=== PATIENT | female | born 1935 | race Caucasian/White ===

== ENCOUNTER 2018-03-18 03:43 | Emergency (ER) | payer MEDICARE ==
[~2018-03-18 03:43] MED LIST: ALBU1AER INH; IPRA0.02 INH; NEBUKIT4; VASO10TA8 PO
[2018-03-18 03:47] VITALS: BP 152/91; PULSE 99; RESP 18; TEMP 98; O2SAT 97
[2018-03-18] MEDS ORDERED: ALUMINUM/MAGNESIUM/SIMETH 30 ML CUP PO ONE (05:00)
[2018-03-18] MEDS ORDERED: LIDOCAINE VISCOUS 2% SOLN 15 ML UDC PO ONE (05:00)
[2018-03-18] MEDS ORDERED: SIMETHICONE SUSP DROPS 40 MG/0.6 ML 30 ML BTL PO ONE (05:00)
--- NOTE | 2018-03-18 05:04 | PD ---
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 She is done that repeatedly for 2 days and now she said she felt it was making her stomach hurt and her food tasted weird she read the package that said get medical help for ingestion she comes to the ER worried that she is ingested toxin. She also says she is very stressed and her pressure will be elevated and she brought her enalapril with her that she takes only as needed when her pressure goes up. She has no swelling of her lips she has no stridor she has no signs of respiratory distress there is no wheeze and she seems to be very anxious over worried about petroleum jelly which the amount that she is put on her lips is minimal and would not be toxic to her. PFSH Past Medical History Asthma: Yes Blood Disorders: No Anxiety: Yes Depression: No Heart Rhythm Problems: No Cancer: Yes (SKIN CA ON NOSE) Cardiovascular Problems: Yes (SMALL AORTIC ANEURYSM) High Cholesterol: No Chemotherapy: No Chest Pain: No Congestive Heart Failure: No COPD: Yes Diminished Hearing: No Endocrine: No Gastrointestinal Disorders: No Genitourinary: No Hypertension: Yes Immune Disorder: No Musculoskeletal: Yes (BORN MISSING A SINGLE VERTIBRA) Neurologic: No Psychiatric: Yes Reproductive: No Respiratory: Yes (COPD) Radiation Therapy: No Sleep Apnea: No Menopausal: Yes Past Surgical History Tonsillectomy: Yes Other Surgery: Yes (TONSILECTOMY) Social History Alcohol Use: No Tobacco Use: No Substance Use: No Allergies-Medications (Allergen,Severity, Reaction): Coded Allergies: ciprofloxacin (Unverified Allergy, Intermediate, RASH, HIVES, 03/18/18) penicillin G (Unverified Allergy, Intermediate, RASH, HIVES, 03/18/18) Reported Meds & Prescriptions Reported Meds & Active Scripts Active Reported Duoneb (Ipratropium-Albuterol Neb) 0.5-2.5 Mg/3 Ml Neb 1 Nebule INH Q6HR NEB Proair Hfa 8.5 GM Inh (Albuterol Sulfate) 90 Mcg/Act Aer 1 Puff INH Q4H PRN 108 mcg/actuation Vasotec (Enalapril Maleate) 10 Mg Tab 10 Mg PO BID Review of Systems Except as stated in HPI: all other systems reviewed are Neg Gastrointestinal: Positive: Abdominal Pain Physical Exam Narrative GENERAL: Patient seems mildly anxious standing at the doorway awaiting the doctor SKIN: Warm and dry. She has scar where she had basal cell carcinoma removed from her nose and she has a slight swelling of her right lower lip where this scar is healing from the squamous cell that was removed stitches were out HEAD: Atraumatic. Normocephalic. EYES: Pupils equal and round. No scleral icterus. No injection or drainage. ENT: Nose has healing scar from recent basal cell removal . Mucous membranes pink and moist. Posterior pharynx there is no swelling to her uvula there is no swelling to her tongue her right lower lip is mildly swollen no signs of infection postoperative NECK: Trachea midline. No JVD. ..No stridor on auscultated at the neck, no submental swelling of the lymph nodes CARDIOVASCULAR: Regular rate and rhythm. RESPIRATORY: No accessory muscle use. Clear to auscultation. Breath sounds equal bilaterally. GASTROINTESTINAL: Abdomen soft, pulsating mass felt on abdo exam . POC US 5.5cm AAA seen measured by this MD MUSCULOSKELETAL: Extremities without clubbing, cyanosis, or edema. No obvious deformities. NEUROLOGICAL: Awake and alert. No obvious cranial nerve deficits. Motor grossly within normal limits. Five out of 5 muscle strength in the arms and legs. Normal speech. PSYCHIATRIC: patient seems slightly anxious; insight and judgment normal. Data Data Last Documented VS Vital Signs Date Time Temp Pulse Resp B/P (MAP) Pulse Ox O2 Delivery O2 Flow Rate FiO2 03/18/18 08:07 82 17 132/84 (100) 98 Orders Orders Simethicone Liq (Drops) (Simethicone Liq (03/18/18 05:00) Al-Mag Hy-Si 40-40-4 Mg/Ml Liq (Mag-Al P (03/18/18 05:00) Lidocaine 2% Viscous (Xylocaine 2% Visco (03/18/18 05:00) Complete Blood Count With Diff (03/18/18 05:31) Comprehensive Metabolic Panel (03/18/18 05:31) Lipase (03/18/18 05:31) Cta Thor Abd Aorta W Iv C W3d (03/18/18 ) Sodium Chlorid 0.9% 500 Ml Inj (Ns 500 M (03/18/18 06:15) Iohexol 350 Inj (Omnipaque 350 Inj) (03/18/18 06:39) Ed Discharge Order (03/18/18 07:24) Radiology Film Requests (03/18/18 ) Endovascular Cath (03/18/18 ) Labs Laboratory Tests Test 03/18/18 05:35 White Blood Count 10.8 TH/MM3 Red Blood Count 4.69 MIL/MM3 Hemoglobin 13.7 GM/DL Hematocrit 41.3 % Mean Corpuscular Volume 88.1 FL Mean Corpuscular Hemoglobin 29.3 PG Mean Corpuscular Hemoglobin Concent 33.2 % Red Cell Distribution Width 15.4 % Platelet Count 233 TH/MM3 Mean Platelet Volume 7.3 FL Neutrophils (%) (Auto) 64.7 % Lymphocytes (%) (Auto) 18.7 % Monocytes (%) (Auto) 15.6 % Eosinophils (%) (Auto) 0.6 % Basophils (%) (Auto) 0.4 % Neutrophils # (Auto) 7.0 TH/MM3 Lymphocytes # (Auto) 2.0 TH/MM3 Monocytes # (Auto) 1.7 TH/MM3 Eosinophils # (Auto) 0.1 TH/MM3 Basophils # (Auto) 0.0 TH/MM3 CBC Comment DIFF FINAL Differential Comment Blood Urea Nitrogen 14 MG/DL Creatinine 0.64 MG/DL Random Glucose 105 MG/DL Total Protein 6.7 GM/DL Albumin 3.5 GM/DL Calcium Level 9.0 MG/DL Alkaline Phosphatase 125 U/L Aspartate Amino Transf (AST/SGOT) 17 U/L Alanine Aminotransferase (ALT/SGPT) 15 U/L Total Bilirubin 0.4 MG/DL Sodium Level 140 MEQ/L Potassium Level 4.0 MEQ/L Chloride Level 105 MEQ/L Carbon Dioxide Level 28.8 MEQ/L Anion Gap 6 MEQ/L Estimat Glomerular Filtration Rate 89 ML/MIN Lipase 161 U/L MDM Medical Decision Making Medical Screen Exam Complete: Yes Emergency Medical Condition: Yes Differential Diagnosis Differential diagnosis is anxiety versus somatization versus allergic reaction versus contact dermatitis versus other Narrative Course Maalox lidocaine and simethicone ordered , then on exam I feel a pulsatile mass > THis MD did POC US AAA 5.5cm measured and I order labs and aortic study of thoracic and abdo aorta. I did a CTA which shows the aneurysm is 6.8 I explained to the patient this is significantly enlarged and the durán very thin and the risk of rupturing and dying are very high and I insist that she stays and be seen by vascular surgery I explained to her the risk of passing away from a sudden tearing of the aneurysm she understands the risks and she understands that includes exsanguination and . I am giving her the CD and giving her a copy of the report and she will follow-up with her doctor today and discuss it with her children I am giving her the print report as well and I have explained in detail the severity of her situation I tell her that I want to admit her vascular surgery for elective surgery and I tell her the risk of a spontaneous rupture Procedures Procedure Narrative POC ABDO US --> AAA 5.5cm measured by this MD and large thrombus seen ,,--> CT ordered Diagnosis Primary Impression: Abdominal cramping Additional Impression: AAA (abdominal aortic aneurysm) without rupture Patient Instructions: General Instructions, Nonruptured Abdominal Aortic Aneurysm (DC), Nonruptured Abdominal Aortic Aneurysm (GEN) Disposition: 07 AGAINST MEDICAL ADVICE Goyo Arrieta MD Mar 18, 2018 05:04
[2018-03-18 05:44] LABS: BASOPHIL % 0.4 % (0.0-2.0); EOSINOPHIL # 0.1 TH/MM3 (0-0.4); EOSINOPHIL % 0.6 % (0.0-4.0); HEMATOCRIT 41.3 % (35.0-46.0); HEMOGLOBIN 13.7 GM/DL (11.6-15.3); LYMPH % 18.7 % (9.0-44.0); MEAN CELL VOLUME 88.1 FL (80.0-100.0); MEAN CORPUSCULAR HEMOGLOBIN 29.3 PG (27.0-34.0); MEAN CORPUSCULAR HGB CONC 33.2 % (32.0-36.0); MEAN PLATELET VOLUME 7.3 FL (7.0-11.0); MONO % 15.6 % (0.0-8.0); MONOCYTE # 1.7 TH/MM3 (0-0.9); NEUT % 64.7 % (16.0-70.0); PLATELET COUNT 233 TH/MM3 (150-450); RED BLOOD COUNT 4.69 MIL/MM3 (4.00-5.30); RED CELL DISTRIBUTION WIDTH 15.4 % (11.6-17.2); WHITE BLOOD COUNT 10.8 TH/MM3 (4.0-11.0)
[2018-03-18 06:08] LABS: ALBUMIN 3.5 GM/DL (3.4-5.0); ALT (GPT) 15 U/L (10-53); AST (GOT) 17 U/L (15-37); BICARBONATE 28.8 MEQ/L (21.0-32.0); BLOOD UREA NITROGEN 14 MG/DL (7-18); CHLORIDE 105 MEQ/L (98-107); CREATININE 0.64 MG/DL (0.50-1.00); GLOMERULAR FILTRATION RATE 89 ML/MIN (>89); GLUCOSE,RANDOM 105 MG/DL (74-106); SODIUM (NA) 140 MEQ/L (136-145)
[2018-03-18 06:10] LABS: ALKALINE PHOSPHATASE 125 U/L (45-117); TOTAL BILIRUBIN ADULT 0.4 MG/DL (0.2-1.0); TOTAL PROTEIN 6.7 GM/DL (6.4-8.2)
[2018-03-18] MEDS ORDERED: SODIUM CHLORID 0.9% 500 ML INJ 500 ML IV ONE (06:15)
[2018-03-18] MEDS ORDERED: IOHEXOL 350 MG/ML 10 ML VIAL (for RAD DIAG) IVCONTRAST ONE (06:39)
--- NOTE | 2018-03-18 06:56 | RADRPT ---
EXAM DATE/TIME: 03/18/2018 06:20 [place] COMPARISON: No previous studies available for comparison. INDICATIONS : Abdominal pain, doctor seen 5.5 cm aneurysm on bedside US. IV CONTRAST: 80 cc Omnipaque 350 (iohexol) IV RADIATION DOSE: 3.92 CTDIvol (mGy) MEDICAL HISTORY : Hypertension. Chronic obstructive pulmonary disease. Aneurysm, abdominal. SURGICAL HISTORY : None. ENCOUNTER: Initial ACUITY: 1 day PAIN SCALE: 7/10 LOCATION: Abdomen. TECHNIQUE: Volumetric scanning was performed using a multi-row detector CT scanner. The data was post processed with a variety of visualization algorithms including full volume maximum intensity pr ojection, multi-planar sliding thin slab reformation, curved planar reformation, and surface renderin g techniques. Using automated exposure control and adjustment of the mA and/or kV according to patie nt size, radiation dose was kept as low as reasonably achievable to obtain optimal diagnostic quality images. DICOM format image data is available electronically for review and comparison. FINDINGS: LUNGS: There is no consolidation or pneumothorax. No concerning pulmonary nodule is visualized. No pleural fluid is present. MEDIASTINUM: No abnormally enlarged lymph nodes by CT criteria. No axillary or hilar abnormalitie s are identified. ABDOMEN: The liver and spleen are free of focal defects. The gallbladder and pancreas demonstrate no abnormality. The adrenal glands are normal. The kidneys demonstrate no evidence of solid renal ma ss or hydronephrosis. Benign left renal cyst. No free fluid or abdominal masses are identified. No pa ra-aortic adenopathy is seen. PELVIS: No evidence of free fluid or pelvic mass. No abnormally enlarged inguinal or retroperiton eal lymph nodes are present. The bladder is unremarkable. THORACIC AORTA: The thoracic aortic root is normal with normal branching of the great vessels. There is no evidence of aneurysm or dissection. ABDOMINAL AORTA: There is a large aneurysm of the abdominal aorta beginning approximately 2 cm in ferior to the level of the renal arteries and extending to the level of the common iliac artery bifur cation. The aneurysm demonstrates a large area of asymmetric thrombus with the aneurysm measuring 6.8 cm anterior posterior by 5.8 cm transversely. There are small foci of increased density identified w ithin the area of lower attenuation thrombus consistent with active bleeding. PELVIC VESSELS: The internal iliac and external iliac vessels are patent without aneurysm or sten osis. CONCLUSION: There is a large abdominal aortic aneurysm extending from approximately 2 cm below le candido of the renal arteries to the level of the common iliac artery bifurcation. The maximum diameter o f the aneurysm measures 6.8 cm. There is evidence of active bleeding within the aneurysm. Debbi Lima MD on March 18, 2018 at 6:46 Board Certified Radiologist. This report was verified electronically.
[2018-03-18 08:07] VITALS: BP 132/84
[2018-03-18] MEDS ORDERED: VASO10TA8 PO (11:55)
[2018-03-18] MEDS ORDERED: ALBUAER3 INH (11:55)
[2018-03-18] MEDS ORDERED: IPRASOL INH (11:55)
== END 2018-03-18 08:10 | disposition left against medical advice (07) ==
LOC: NEPE 03:43
DX: I71.4 Abdominal aortic aneurysm, without rupture (principal); R10.9 Unspecified abdominal pain; Z53.20 Procedure and treatment not carried out because of patient's decision for unspecified reasons; I10 Essential (primary) hypertension; J44.9 Chronic obstructive pulmonary disease, unspecified; Z85.828 Personal history of other malignant neoplasm of skin; Z88.0 Allergy status to penicillin; Z79.899 Other long term (current) drug therapy
CPT/HCPCS: 71275; 74174; 80053; 83690; 85025; 96360; 99284; J7040; Q9967

== ENCOUNTER 2018-03-18 10:10 | Inpatient (IN) | payer MEDICARE ==
[2018-03-18] VITALS (13 sets, daily range): BP systolic 105–149; BP diastolic 45–79; PULSE 65–103; RESP 15–20; TEMP 96.7–98.2; O2SAT 96–99
--- NOTE | 2018-03-18 11:15 | PD ---
HPI . GI upset Chief Complaint: GI Complaint Time Seen by Provider: 10:31 Travel History International Travel<30 days: No Contact w/Intl Traveler<30days: No Traveled to known affect area: No History of Present Illness HPI This patient was called back by her primary care physician for further evaluation and treatment of a leaking AAA. The patient states that she is having an adverse reaction to doxycycline. She was placed on doxycycline because of some facial wounds. She reports epigastric discomfort and flatus. She was seen for this last night. She was found to have the AAA and this was recommended. However, she signed out AMA. Her primary care physician received the radiology report today. He was able to contact the patient and her son. The son brought her back to us this morning. She continues to report that her problem is the adverse reaction to doxycycline. She has stopped the doxycycline but the symptoms persist. She rates the severity at 5/10. There have been no modifying factors. PFSH Past Medical History Asthma: Yes Blood Disorders: No Anxiety: Yes Depression: No Heart Rhythm Problems: No Cancer: Yes (SKIN CA ON NOSE) Cardiovascular Problems: Yes (SMALL AORTIC ANEURYSM) High Cholesterol: No Chemotherapy: No Chest Pain: No Congestive Heart Failure: No COPD: Yes Diminished Hearing: No Endocrine: No Gastrointestinal Disorders: No Genitourinary: No Hypertension: Yes Immune Disorder: No Musculoskeletal: Yes (BORN MISSING A SINGLE VERTIBRA) Neurologic: No Psychiatric: Yes Reproductive: No Respiratory: Yes (COPD) Radiation Therapy: No Sleep Apnea: No Menopausal: Yes Past Surgical History Tonsillectomy: Yes Other Surgery: Yes (TONSILECTOMY) Social History Alcohol Use: No Tobacco Use: No Substance Use: No Allergies-Medications (Allergen,Severity, Reaction): Coded Allergies: ciprofloxacin (Unverified Allergy, Intermediate, RASH, HIVES, 03/18/18) penicillin G (Unverified Allergy, Intermediate, RASH, HIVES, 03/18/18) Reported Meds & Prescriptions Reported Meds & Active Scripts Active Reported Duoneb (Ipratropium-Albuterol Neb) 0.5-2.5 Mg/3 Ml Neb 1 Nebule INH Q6HR NEB Proair Hfa 8.5 GM Inh (Albuterol Sulfate) 90 Mcg/Act Aer 1 Puff INH Q4H PRN 108 mcg/actuation Vasotec (Enalapril Maleate) 10 Mg Tab 10 Mg PO BID Review of Systems Except as stated in HPI: all other systems reviewed are Neg Neurologic: No: Weakness, Dizziness, Paresthesia, Sensory Disturbance Physical Exam Narrative GENERAL: Lucid. Awake and alert. SKIN: warm/dry. HEAD: Normocephalic. Atraumatic. EYES: Pupils equal and round. No scleral icterus. No injection or drainage. ENT: No nasal bleeding or discharge. Mucous membranes pink and moist. NECK: Trachea midline. Full range of motion without pain.. CARDIOVASCULAR: Regular rate and rhythm. Heart sounds are normal. RESPIRATORY: No accessory muscle use. Clear to auscultation. Breath sounds equal bilaterally. GASTROINTESTINAL: Abdomen soft. Nontender. Bowel sounds present. Nondistended. MUSCULOSKELETAL: No obvious deformities. NEUROLOGICAL: Awake and alert. No obvious cranial nerve deficits. Motor grossly within normal limits. Normal speech. PSYCHIATRIC: Appropriate mood and affect; insight and judgment normal. Data Data Last Documented VS Vital Signs Date Time Temp Pulse Resp B/P (MAP) Pulse Ox O2 Delivery O2 Flow Rate FiO2 03/18/18 12:14 88 18 149/68 (95) 95 03/18/18 10:19 98.1 Orders Orders ^ Saline Lock (03/18/18 10:36) Complete Blood Count With Diff (03/18/18 10:36) Prothrombin Time / Inr (Pt) (03/18/18 10:36) Urinalysis - C+S If Indicated (03/18/18 10:36) Act Partial Throm Time (Ptt) (03/18/18 10:36) Electrocardiogram (03/18/18 ) Type And Screen (03/18/18 11:48) Fentanyl Inj (Fentanyl Inj) (03/18/18 11:50) Red Blood Cells (Rbc) (03/18/18 12:03) Vancomycin Inj (Vancomycin Inj) (03/18/18 12:08) Protamine Sulfate Inj (Protamine Sulfate (03/18/18 12:11) Heparin Inj (Heparin Inj) (03/18/18 12:12) Labs Laboratory Tests Test 03/18/18 11:20 03/18/18 11:59 White Blood Count 9.8 TH/MM3 Red Blood Count 4.42 MIL/MM3 Hemoglobin 12.9 GM/DL Hematocrit 38.3 % Mean Corpuscular Volume 86.8 FL Mean Corpuscular Hemoglobin 29.1 PG Mean Corpuscular Hemoglobin Concent 33.6 % Red Cell Distribution Width 14.8 % Platelet Count 235 TH/MM3 Mean Platelet Volume 7.5 FL Neutrophils (%) (Auto) 65.7 % Lymphocytes (%) (Auto) 19.2 % Monocytes (%) (Auto) 14.3 % Eosinophils (%) (Auto) 0.3 % Basophils (%) (Auto) 0.5 % Neutrophils # (Auto) 6.4 TH/MM3 Lymphocytes # (Auto) 1.9 TH/MM3 Monocytes # (Auto) 1.4 TH/MM3 Eosinophils # (Auto) 0.0 TH/MM3 Basophils # (Auto) 0.0 TH/MM3 CBC Comment DIFF FINAL Differential Comment Prothrombin Time 10.8 SEC Prothromb Time International Ratio 1.1 RATIO Activated Partial Thromboplast Time 28.0 SEC Urine Color LIGHT-YELLOW Urine Turbidity CLEAR Urine pH 7.5 Urine Specific [place] 1.026 Urine Protein NEG mg/dL Urine Glucose (UA) NEG mg/dL Urine Ketones NEG mg/dL Urine Occult Blood MOD Urine Nitrite NEG Urine Bilirubin NEG Urine Urobilinogen LESS THAN 2.0 MG/DL Urine Leukocyte Esterase NEG Urine RBC 6 /hpf Urine WBC 2 /hpf Urine Bacteria OCC /hpf Microscopic Urinalysis Comment CULT NOT INDICATED MDM Medical Decision Making Medical Screen Exam Complete: Yes Emergency Medical Condition: Yes Medical Record Reviewed: Yes (CTA done at 620 this morning shows a large AAA which starts 2 cm below the renal arteries and extends to the bifurcation. Maximum diameter is 6.8 cm. There is evidence of active bleeding.) Interpretation(s) EKG shows a normal sinus rhythm with no acute ischemic changes Differential Diagnosis Differential diagnosis of abdominal pain includes but is not limited to gastritis, pancreatitis, hepatitis, gastroenteritis, constipation, urinary retention, peptic ulcer disease, diverticulitis or appendicitis Narrative Course This patient presents at the request of her physician because of a CTA done earlier this morning which shows a leaking AAA. She has no complaints of feeling weak or dizzy. She has no neurologic complaints in the lower extremities. An IV was started. I did not recheck her chemistries which were done early this morning. I have rechecked her CBC. I have added a PT and PTT as well as UA and EKG for preoperative purposes. Vascular surgery was consulted and will see the patient shortly. Dr. Figueroa is taking this patient emergently to the operating room. Critical Care Narrative Aggregate critical care time was 30 minutes. Time to perform other separately billable procedures was not included in the critical care time. My time did not include minutes spent treating any other patients simultaneously or on activities that did not directly contribute to the patient's treatment. The services I provided to this patient were to treat and/or prevent clinically significant deterioration due to leaking AAA I provided critical care services requiring my management, as noted below: Chart data review, documentation time, medication orders and management, vital sign assessments/reviewing monitor data, ordering and reviewing lab tests, ordering and interpreting/reviewing x-rays and diagnostic studies, care of the patient and discussion of the patient with the admitting physicians Physician Communication Physician Communication Dr. Carlos will see the patient shortly. Diagnosis Primary Impression: AAA (abdominal aortic aneurysm) Qualified Codes: I71.4 - Abdominal aortic aneurysm, without rupture Admitting Information Admitting Physician Requests: Admit Condition: Stable Karena Crowell MD Mar 18, 2018 11:15
[2018-03-18 11:49] LABS: INTERNATIONAL NORMALIZED RATIO 1.1 RATIO; PROTHROMBIN TIME - PATIENT 10.8 SEC (9.8-11.6)
[2018-03-18] MEDS ORDERED: IPRASOL INH (11:55)
[2018-03-18] MEDS ORDERED: ALBUAER3 INH (11:55)
[2018-03-18] MEDS ORDERED: VASO10TA8 PO (11:55)
[2018-03-18] MEDS ORDERED: NEOSTIGMINE 5 MG/5 ML SYRINGE IV PUSH ONE ×2 (12:00)
[2018-03-18] MEDS ORDERED: DEXAMETHASONE SOD PHOS 4 MG/ML VIAL IV ONE ×2 (12:00)
[2018-03-18] MEDS ORDERED: ONDANSETRON HCL 4 MG/2 ML VIAL IV ONE ×2 (12:00)
[2018-03-18] MEDS ORDERED: LIDOCAINE HCL 1% PF 5 ML SYRINGE OTHER ONE ×2 (12:00)
[2018-03-18] MEDS ORDERED: ePHEDrine/NS 25 MG/5 ML SYRINGE IV ONE ×2 (12:00)
[2018-03-18] MEDS ORDERED: LABETALOL HCL 100 MG/20 ML VIAL IV ONE ×2 (12:00)
[2018-03-18] MEDS ORDERED: ROCURONIUM INJ 50 MG/5 ML SYRINGE IV PUSH ONE ×2 (12:00)
[2018-03-18] MEDS ORDERED: PROPOFOL 200 MG/20 ML AMP IV ONE ×2 (12:00)
[2018-03-18] MEDS ORDERED: GLYCOPYRROLATE 1 MG/5 ML SYRINGE IV PUSH ONE ×2 (12:00)
[2018-03-18] MEDS ORDERED: ESMOLOL HCL 100 MG/10 ML VIAL IV ONE ×2 (12:00)
[2018-03-18] MEDS ORDERED: STERILE WATER FOR INJECTION 20 ML VIAL IV ONE ×2 (12:00)
[2018-03-18] MEDS ORDERED: PHENYLEPH/NS 1000 MCG/10 ML SYR IV ONE ×2 (12:00)
--- NOTE | 2018-03-18 12:05 | HHI.HP ---
History of Present Illness Chief Complaint: New onset abdominal pain History of Present Illness 82/F with a PMH of COPD/ HTN/ Skin Cancer Pt denied MT/ cardiac hx Pt Arrived to the ED c/o "gas pains" lower pelvic pain times a few days that worsened over night Imaging studies obtained and it was discovered that the pt has a leaking infrarenal AAA (6.8 cm) Pt reported a known hx a few years ago but was told it was small, no f/u and pt does not recall the size (Ladan Hernandez) Past/Family/Social History Past Medical History HTN COPD Skin cancer Past Surgical History denied Social History Live alone Family lives locally that checks on her daily Had 2 sons and 1 daughter Denied ETOH Smoking hx quit years ago Denied Illicit drug usage Family History No hx of aneurysms (Ladan Hernandez) Home Medications Reported Medications Ipratropium-Albuterol Neb (Duoneb) 0.5-2.5 Mg/3 Ml Neb, 1 NEBULE INH Q6HR NEB for Breathing Treatment, #120 NEBULE 0 Refills 03/18/18 Albuterol 8.5 GM Inh (Proair Hfa 8.5 GM Inh) 90 Mcg/Act Aer, 1 PUFF INH Q4H Y for SHORTNESS OF BREATH, #1 INHALER 0 Refills 108 mcg/actuation 03/18/18 Enalapril (Vasotec) 10 Mg Tab, 10 MG PO BID, #60 TAB 0 Refills 03/18/18 Discontinued Reported Medications Albuterol Sulfate (Proair Hfa) 8.5 Gm Aero, 1 PUFF INH Q6HPRN, #1 * SHAKE WELL BEFORE USE * 09/28/09 Discontinued Scripts Enalapril Maleate (Vasotec) 10 Mg Tab, 10 MG PO BID for htn for 30 Days, TAB Prov:Nenita Santillan 02/05/15 Ipratropium Brickeys (Atrovent Ud 0.02% (0.5 Mg/2.5 Ml)) 0.5 Mg/2.5 Ml Nebu, 0.5 MG INH QID for copd exacerbation, #1 BOX Prov:Nenita Santillan 02/05/15 Respiratory Therapy Supplies (Nebulizer/Adult Mask) Kit, 1 UNIT, #1 Prov:Nenita Santillan 02/05/15 Coded Allergies: ciprofloxacin (Unverified Allergy, Intermediate, RASH, HIVES, 03/18/18) penicillin G (Unverified Allergy, Intermediate, RASH, HIVES, 03/18/18) Review of Systems Constitutional: DENIES: Fever, Chills Respiratory: DENIES: Cough, Shortness of breath Cardiovascular: DENIES: Chest pain Gastrointestinal: COMPLAINS OF: Abdominal pain (lower Right quadrant ) (Ladan Hernandez) Physical Exam Vitals/I&O Date Time Temp Pulse Resp B/P (MAP) Pulse Ox O2 Delivery O2 Flow Rate FiO2 03/18/18 11:22 86 18 132/71 (91) 98 03/18/18 10:19 98.1 91 20 129/79 (96) 98 Neuro: A&OX3 GCS 15 Neck: No JVD distention No carotid bruits Heart: RRR +S1,S2 Lungs: CTA Abdomen: S/NT RLQ discomfort Vascular: palpable pedal pulses palpable radial pulses Extremities: UE 5/5 LE 5/5 (Ladan Hernandez) Laboratory Tests Test 03/18/18 11:20 Prothrombin Time 10.8 Prothromb Time International Ratio 1.1 Activated Partial Thromboplast Time 28.0 (Ladan Hernandez) Caprini VTE Risk Assessment VTE Pharm Contraindication: Active bleeding Caprini Risk Assessment Model Point Value = 1 Point Value = 2 Point Value = 3 Point Value = 5 Age 41-60 Minor surgery BMI > 25 kg/m2 Swollen legs Varicose veins or History of unexplained or recurrent spontaneous Oral contraceptives or hormone replacement Sepsis (< 1 month) Serious lung disease, including pneumonia (< 1 month) Abnormal pulmonary function Acute myocardial infarction Congestive heart failure (< 1 month) History of inflammatory bowel disease Medical patient at bed rest Age 61-74 Arthroscopic surgery Major open surgery (> 45 min) Laparoscopic surgery (> 45 min) Malignancy Confined to bed (> 72 hours) Immobilizing plaster cast Central venous access Age >= 75 History of VTE Family history of VTE Factor V Leiden Prothrombin [id number] Lupus anticoagulant Anticardiolipin antibodies Elevated serum homocysteine Heparin-induced thrombocytopenia Other congenital or acquired thrombophilia Stroke (< 1 month) Elective arthroplasty Hip, pelvis, or leg fracture Acute spinal cord injury (< 1 month) Prophylaxis Regimen Total Risk Factor Score Risk Level Prophylaxis Regimen 0-1 Low Early ambulation 2 Moderate Order ONE of the following: *Sequential Compression Device (SCD) *Heparin 5000 units SQ BID 3-4 Higher Order ONE of the following medications: *Heparin 5000 units SQ TID *Enoxaparin/Lovenox 40 mg SQ daily (WT < 150 kg, CrCl > 30 mL/min) *Enoxaparin/Lovenox 30 mg SQ daily (WT < 150 kg, CrCl > 10-29 mL/min) *Enoxaparin/Lovenox 30 mg SQ BID (WT < 150 kg, CrCl > 30 mL/min) AND/OR *Sequential Compression Device (SCD) 5 or more Highest Order ONE of the following medications: *Heparin 5000 units SQ TID (Preferred with Epidurals) *Enoxaparin/Lovenox 40 mg SQ daily (WT < 150 kg, CrCl > 30 mL/min) *Enoxaparin/Lovenox 30 mg SQ daily (WT < 150 kg, CrCl > 10-29 mL/min) *Enoxaparin/Lovenox 30 mg SQ BID (WT < 150 kg, CrCl > 30 mL/min) AND *Sequential Compression Device (SCD) (Ladan Hernandez) Caprini VTE Risk Assessment: Mod/High Risk (score >= 2) (Ricardo Carlos MD) Assessment and Plan Assessment: (1) AAA (abdominal aortic aneurysm) Status: Acute Plan 82/F with a 6.7 cm ruptured infrarenal AAA Pt c/o increased abdominal pain over the past few days Plan Discussed CT results w/ pt and son and the emergent need to repair Questions answered Consents obtained T&C 2U Pt sent to the OR for AAA repair Ladan Hernandez NP [facility] [phone] (Ladan Hernandez) Plan Appears to have contained rupture of AAA. To OR for EVAR. CVICU post-op. Discussed risks and benefits with patient/family. To OR. Ricardo Carlos MD FACS [facility] packing inspector [facility] - Heart [facility] Vascular Surgery at [facility] [phone] (Ricardo Carlos MD) Problem Qualifiers (1) AAA (abdominal aortic aneurysm): Qualified Codes: I71.3 - Abdominal aortic aneurysm, ruptured Ladan Hernandez Mar 18, 2018 12:05 Ricardo Carlos MD Mar 18, 2018 12:11
[2018-03-18] MEDS ORDERED: VANCOMYCIN HCL 1000 MG VIAL ONE (12:08)
[2018-03-18] MEDS ORDERED: PROTAMINE SULFATE 50 MG/5 ML VIAL ONE (12:11)
[2018-03-18 12:12] LABS: AUTOMATED NEUTROPHIL # 6.4 TH/MM3 (1.8-7.7); BASOPHIL % 0.5 % (0.0-2.0); EOSINOPHIL % 0.3 % (0.0-4.0); HEMATOCRIT 38.3 % (35.0-46.0); HEMOGLOBIN 12.9 GM/DL (11.6-15.3); LYMPH % 19.2 % (9.0-44.0); LYMPHOCYTE # 1.9 TH/MM3 (1.0-4.8); MEAN CELL VOLUME 86.8 FL (80.0-100.0); MEAN CORPUSCULAR HEMOGLOBIN 29.1 PG (27.0-34.0); MEAN CORPUSCULAR HGB CONC 33.6 % (32.0-36.0); MEAN PLATELET VOLUME 7.5 FL (7.0-11.0); MONO % 14.3 % (0.0-8.0); MONOCYTE # 1.4 TH/MM3 (0-0.9); NEUT % 65.7 % (16.0-70.0); PLATELET COUNT 235 TH/MM3 (150-450); RED BLOOD COUNT 4.42 MIL/MM3 (4.00-5.30); RED CELL DISTRIBUTION WIDTH 14.8 % (11.6-17.2); WHITE BLOOD COUNT 9.8 TH/MM3 (4.0-11.0)
[2018-03-18] MEDS ORDERED: HEPARIN SODIUM - IV 10,000 UNITS/10 ML VIAL ONE (12:12)
[2018-03-18 12:16] LABS: BACTERIA, URINE OCC /hpf; BILIRUBIN, URINE NEG (NEG); BLOOD, URINE MOD (NEG); GLUCOSE,URINE NEG (NEG); KETONE, URINE NEG (NEG); NITRITE,URINE NEG (NEG); PH, URINE 7.5 (5.0-8.5); URINE COLOR LIGHT-YELLOW (YELLW/STRAW); URINE LEUKOCYTE ESTERASE NEG (NEG)
[2018-03-18] MEDS ORDERED: HEPARIN-NS/PF INJ 500 ML ONE (13:28)
[2018-03-18] MEDS ORDERED: BUPIVACAINE HCL PF 0.5% 30 ML VIAL ONE (13:32)
--- NOTE | 2018-03-18 14:06 | HHI.PR ---
cc: Ricardo Carlos MD Immediate Post Op Note Procedure Date: Mar 18, 2018 Pre Op Diagnosis: Ruptured AAA Post Op Diagnosis: Ruptured AAA Surgeon: Ricardo Carlos Parts Room Clerk(s): Ricardo Snyder Procedure: EVAR with two docking limbs B COMMERCIAL PHOTOGRAPHER Perclose Findings: successful EVAR good Doppler signals after EVAR Additional Information: 80mL IV contrast 17 minutes fluoroscopy Complications: none Specimen(s) removed: none Estimated blood loss: 100mL Anesthesia: General Drains: None Fluids: 2000mL IVF Urinary Output (mLs): 500 Patient to: PACU Patient Condition: Good Implant/Devices: SEE IMPLANT LOG (if applicable) Date/Time of Procedure: SEE SURGICAL CARE RECORD Ricardo Carlos MD Mar 18, 2018 14:06
[2018-03-18] MEDS ORDERED: LACTATED RINGER'S 1000 ML INJ 1,000 ML IV SCH (14:07)
[2018-03-18] MEDS ORDERED: LACTULOSE SYRUP 20 GM/30 ML CUP PO PRN (14:15)
[2018-03-18] MEDS ORDERED: ALBUTEROL SULFATE 90 MCG/ACT HFA 8 GM INHALER INH PRN (14:15)
[2018-03-18] MEDS ORDERED: MAGNESIUM HYDROXIDE SUSP 30 ML CUP PO PRN (14:15)
[2018-03-18] MEDS ORDERED: HYDROmorphone HCL 2 MG TAB PO PRN (14:15)
[2018-03-18] MEDS ORDERED: BISACODYL 10 MG SUPP RECTAL PRN (14:15)
[2018-03-18] MEDS ORDERED: SENNOSIDES 8.6 MG TAB PO PRN (14:15)
[2018-03-18] MEDS ORDERED: IOHEXOL 350 MG/ML 50 ML BTL (for RAD DIAG) IVCONTRAST ONE (14:18)
--- NOTE | 2018-03-18 14:31 | PD.CONS ---
[facility] Service Critical Care Medicine Consult Requested By Dr. Carlos Reason for Consult Leaking abdominal aortic aneurysm s/p successful EVAR History of COPD Primary Care Physician Inder Meeks M.D. History of Present Illness Patient is a 10-year-old female with past medical history significant for COPD, hypertension, skin cancer and history of small abdominal aortic aneurysm. She presented to the emergency department with lower abdominal pain was overnight. An aortic angiogram showed that the patient had a leaking infrarenal AAA, 6.8 cm in maximum diameter. Vascular surgery Dr. Carlos was consulted and he emergently took the patient to OR. Underwent successful EVAR. Estimated blood loss: 100mL, received 2 L of IV fluids, urine output 500 mL I evaluated the patient in the CVICU. Patient is awake alert and slightly under the influence of anesthesia. Hemodynamically stable. Peripheral lower extremity pulses are palpable. Urine output adequate. CBC pending Review of Systems ROS Limitations: Other (as per HPI) Past Family Social History Allergies: Coded Allergies: ciprofloxacin (Unverified Allergy, Intermediate, RASH, HIVES, 03/18/18) penicillin G (Unverified Allergy, Intermediate, RASH, HIVES, 03/18/18) Past Medical History HTN COPD Skin cancer Known history of AAA Past Surgical History Tonsillectomy Reported Medications DuoNeb breathing treatments Enalapril (Vasotec) 10 Mg Tab, 10 MG PO BID Active Ordered Medications Reviewed Family History Denies any history of ruptured aneurysms Social History Quit smoking 1 year ago Physical Exam Vital Signs Vital Signs Date Time Temp Pulse Resp B/P (MAP) Pulse Ox O2 Delivery O2 Flow Rate FiO2 03/18/18 12:14 88 18 149/68 (95) 95 03/18/18 12:03 65 18 149/68 (95) 99 Nasal Cannula 2.00 03/18/18 11:22 86 18 132/71 (91) 98 03/18/18 10:19 98.1 91 20 129/79 (96) 98 Physical Exam GENERAL: Awake and alert. No distress SKIN: warm/dry. HEAD: Normocephalic. Atraumatic. EYES: Pupils equal and round. No scleral icterus. ENT: No nasal bleeding or discharge. Airway patent NECK: Trachea midline. CARDIOVASCULAR: Regular rate and rhythm. S1-S2 normal no murmurs RESPIRATORY: Clear to auscultation. Breath sounds equal bilaterally. GASTROINTESTINAL: Abdomen soft. Nontender. Nondistended. MUSCULOSKELETAL: No obvious deformities. Bilateral groins incisions C/D/I. Bilateral lower extremity peripheral pulses are palpable NEUROLOGICAL: Awake and alert. No obvious cranial nerve deficits. Motor grossly within normal limits. Laboratory Laboratory Tests Test 03/18/18 11:20 03/18/18 11:59 White Blood Count 9.8 Red Blood Count 4.42 Hemoglobin 12.9 Hematocrit 38.3 Mean Corpuscular Volume 86.8 Mean Corpuscular Hemoglobin 29.1 Mean Corpuscular Hemoglobin Concent 33.6 Red Cell Distribution Width 14.8 Platelet Count 235 Mean Platelet Volume 7.5 Neutrophils (%) (Auto) 65.7 Lymphocytes (%) (Auto) 19.2 Monocytes (%) (Auto) 14.3 Eosinophils (%) (Auto) 0.3 Basophils (%) (Auto) 0.5 Neutrophils # (Auto) 6.4 Lymphocytes # (Auto) 1.9 Monocytes # (Auto) 1.4 Eosinophils # (Auto) 0.0 Basophils # (Auto) 0.0 CBC Comment DIFF FINAL Differential Comment Prothrombin Time 10.8 Prothromb Time International Ratio 1.1 Activated Partial Thromboplast Time 28.0 Urine Color LIGHT-YELLOW Urine Turbidity CLEAR Urine pH 7.5 Urine Specific [place] 1.026 Urine Protein NEG Urine Glucose (UA) NEG Urine Ketones NEG Urine Occult Blood MOD Urine Nitrite NEG Urine Bilirubin NEG Urine Urobilinogen LESS THAN 2.0 Urine Leukocyte Esterase NEG Urine RBC 6 Urine WBC 2 Urine Bacteria OCC Microscopic Urinalysis Comment CULT NOT INDICATED Result Diagram: 03/18/18 1120 Imaging Aortic angiogram personally reviewed Septic Shock Reassessment Septic shock perfusion: reassessment completed Assessment and Plan Assessment and Plan ASSESSMENT: Leaking abdominal aortic aneurysm 6.8 cm in maximum diameter s/p successful EVAR History of COPD Hypertension PLAN: NEURO: As needed Dilaudid for pain. Otherwise minimize sedation RESP: Nasal cannula oxygen. DuoNeb every 6 hours scheduled, every 2 hours as needed. EzPAP CV: LR at 42 ml per hour. 2D Echo ordered by Dr. Carlos GI: Diet per vascular surgery : Monitor renal function closely. Yip catheter. Maintain urine output more than 0.5 mL/kg/h ID: Perioperative antibiotics per vascular surgery HEME: Monitor CBC, CMP, coags as needed ENDO: Electrolyte replacement per CVICU protocol PROPH: Lovenox for DVT prophylaxis per Dr. Carlos LINES: Utilize peripheral IVs, central line if needed Level 3 new consult Code Status Full Discussed Condition With Dr. Carlos, bedside RN Naomi, Patient's family Audrey Jensen MD Mar 18, 2018 14:31
[2018-03-18] MEDS: ENOXAPARIN SODIUM 30 MG/0.3 ML SYRINGE SQ SCH (15:37)
[2018-03-18] MEDS ORDERED: RESP: ALBUTEROL 2.5 MG/IPRATROPIUM 0.5 MG NEB (SCH) INH (16:00)
[2018-03-18 16:05] LABS: HEMATOCRIT 33.8 % (35.0-46.0); HEMOGLOBIN 11.7 GM/DL (11.6-15.3); MEAN CELL VOLUME 85.7 FL (80.0-100.0); MEAN CORPUSCULAR HEMOGLOBIN 29.7 PG (27.0-34.0); MEAN CORPUSCULAR HGB CONC 34.7 % (32.0-36.0); MEAN PLATELET VOLUME 6.8 FL (7.0-11.0); PLATELET COUNT 186 TH/MM3 (150-450); RED BLOOD COUNT 3.94 MIL/MM3 (4.00-5.30); RED CELL DISTRIBUTION WIDTH 14.9 % (11.6-17.2); WHITE BLOOD COUNT 10.7 TH/MM3 (4.0-11.0)
--- NOTE | 2018-03-18 21:09 | MP ---
cc: Ricardo Carlos MD DATE OF OPERATION:03/18/18 PREOPERATIVE DIAGNOSIS: Ruptured abdominal aortic aneurysm. POSTOPERATIVE DIAGNOSIS: Ruptured abdominal aortic aneurysm. PROCEDURE: 1. Endovascular exclusion of abdominal aortic aneurysm using a bifurcated bi-iliac device. 2. Bilateral common femoral artery Perclose of an 18-Estonian sheath on the right and 16-Estonian sheath on the left. ATTENDING SURGEON: Ricardo Carlos MD PHYSICS TECHNICAL OFFICER SURGEON: Ricardo Snyder MD . ANESTHESIA: General. INDICATIONS FOR PROCEDURE: Ms. Huffman is a lady who came into the emergency department with abdominal pain and a CT scan showed radiographic evidence of an abdominal aortic aneurysm that ruptured. She was taken to the operating room emergently. DESCRIPTION OF PROCEDURE: Informed consent was obtained. She was taken to the operating room and was placed supine on the operating room table and appropriate timeout was taken to ensure the patient's identity, operative site, and planned procedure. The administration of 1 gram of vancomycin was initiated prior to skin incision and will be discontinued after a single preoperative dose. Vancomycin was chosen because of the patient's PENICILLIN ALLERGY. Everyone in the room agreed with timeout and we proceeded. She was prepped from her chin to her knees. A 21-gauge micropuncture needle was used to access both common femoral arteries. Access was obtained using Seldinger technique for micropuncture sheath through which a 0.035 Storq wire was advanced and the micropuncture sheath was exchanged for a 5-Estonian sheath to dilate the skin, subcutaneous trac and arteriotomy. Two Perclose ProGlide sutures were inserted in both common femoral arteries and tagged. These will be used later. The short 8-Estonian sheath was placed in the right and a long 8-Estonian sheath was placed in the left. The patient was systemically heparinized. Storq wire was advanced up to the proximal descending thoracic aorta and the right hand Storq wire exchanged for a Lunderquist wire and over the left hand Storq wire a marker flush straight catheter was placed. The 8-Estonian sheath on the right was removed. Fred dilators were used to dilate the skin and subcutaneous tract and arteriotomy to 18F and the main device, which was a Cook Zenith 32 x 84, was introduced and an angiogram was performed which located the the renal arteries and the device was deployed after positioning it so the fabric was immediately distal to the lower renal artery. The contralateral gate popped out in the appropriate location. Then, the top cap was deployed with interval angiography to the depict the renal artery location. A Roadrunner wire was then placed through the marker flush catheter on the left. Marker flush was exchanged for a Cobra catheter and we were able to navigate into the contralateral gate and this was confirmed angiographically. A Lunderquist wire was then placed up the contralateral gate and a marker catheter was placed to locate the left hypogastric artery. After locating the hypogastric artery the left limb was selected, which was a 16 x 90. The catheter was removed. The 8-Estonian sheath was removed. Riffyn dilator was used to dilate up the skin and subcutaneous tract and arteriotomy up to 16F and the device, which was a [employer]g [employer] 16 x 90 was introduced and deployed without difficulty. The delivery system was removed. The remainder of the main body was deployed. The top cap was recaptured. The delivery system except for the sheath was removed on the right hand side. A marker flush catheter was placed and the right hypogastric artery was inspected, was located angiographically. The ipsilateral limb, which was a 16 x 74 was then introduced and deployed without difficulty. A Coda balloon was then used to balloon the proximal and distal ends, as well as all junctions and the completion angiogram showed excellent result, good opacification of both renals, both hypogastrics and filling of the external iliac arteries. The wire catheter and sheath were removed. There were Doppler signals in the feet. The heparin was reversed with protamine. The Perclose were tied down. Hemostasis was achieved in the groins and the groin skin incisions were closed with 4-0 Monocryl. Sponge and needle counts were correct at the end of the case. I was present and scrubbed for the entire procedure. At the conclusion of the case the patient was extubated and transferred to the ICU in stable condition. Ricardo Carlos MD RJF/rt , 08:45 PM , 09:08 PM MYLES
[2018-03-18] MEDS: DOCUSATE SODIUM 50 MG/SENNA 8.6 MG TAB PO SCH (22:14)
[2018-03-18] MEDS: FAMOTIDINE 20 MG TAB PO SCH (22:14)
[2018-03-18] MEDS: ENALAPRIL MALEATE 10 MG TAB PO SCH (22:15)
[2018-03-19] VITALS (9 sets, daily range): BP systolic 99–121; BP diastolic 39–60; PULSE 66–99; RESP 12–18; TEMP 97.8–101.4; O2SAT 90–99
[2018-03-19] MEDS: RESP: ALBUTEROL 2.5 MG/IPRATROPIUM 0.5 MG NEB (SCH) INH ×4 (03:48→21:17)
[2018-03-19] MEDS ORDERED: RESP: ALBUTEROL 2.5 MG/IPRATROPIUM 0.5 MG NEB (SCH) INH (04:00)
[2018-03-19 04:34] LABS: HEMATOCRIT 31.6 % (35.0-46.0); HEMOGLOBIN 10.8 GM/DL (11.6-15.3); MEAN CELL VOLUME 86.8 FL (80.0-100.0); MEAN CORPUSCULAR HEMOGLOBIN 29.7 PG (27.0-34.0); MEAN CORPUSCULAR HGB CONC 34.2 % (32.0-36.0); MEAN PLATELET VOLUME 7.4 FL (7.0-11.0); PLATELET COUNT 178 TH/MM3 (150-450); RED BLOOD COUNT 3.64 MIL/MM3 (4.00-5.30); RED CELL DISTRIBUTION WIDTH 14.9 % (11.6-17.2); WHITE BLOOD COUNT 15.2 TH/MM3 (4.0-11.0)
[2018-03-19 05:11] LABS: BICARBONATE 28.2 MEQ/L (21.0-32.0); CALCIUM 8.1 MG/DL (8.5-10.1); CREATININE 0.5 MG/DL (0.50-1.00)
--- NOTE | 2018-03-19 07:12 | HHI.CCPN ---
Subjective Remarks/Hospital Course Patient is a 10-year-old female with past medical history significant for COPD, hypertension, skin cancer and history of small abdominal aortic aneurysm. She presented to the emergency department with lower abdominal pain was overnight. An aortic angiogram showed that the patient had a leaking infrarenal AAA, 6.8 cm in maximum diameter. Vascular surgery Dr. Carlos was consulted and he emergently took the patient to OR. Underwent successful EVAR. Estimated blood loss: 100mL, received 2 L of IV fluids, urine output 500 mL I evaluated the patient in the CVICU. Patient is awake alert and slightly under the influence of anesthesia. Hemodynamically stable. Peripheral lower extremity pulses are palpable. Urine output adequate. 03/19: No acute events. Urine output adequate. Bilateral dorsalis pedis pulses are palpable. Hemoglobin is stable Objective Vital Signs Date Time Temp Pulse Resp B/P (MAP) Pulse Ox O2 Delivery O2 Flow Rate FiO2 03/19/18 04:22 97.8 85 18 106/60 (75) 98 118/54 (75) 03/18/18 23:07 Nasal Cannula 4.00 Intake and Output 03/19/18 03/19/18 03/20/18 08:00 16:00 00:00 Intake Total 240 ml Output Total 850 ml Balance -610 ml Result Diagram: 03/19/18 0412 03/19/18 041 Imaging Aortic angiogram personally reviewed Objective Remarks GENERAL: Awake and alert. No distress. Sitting up in chair SKIN: warm/dry. HEAD: Normocephalic. Atraumatic. EYES: Pupils equal and round. No scleral icterus. ENT: No nasal bleeding or discharge. Airway patent NECK: Trachea midline. CARDIOVASCULAR: Regular rate and rhythm. S1-S2 normal no murmurs RESPIRATORY: Clear to auscultation. Breath sounds equal bilaterally. GASTROINTESTINAL: Abdomen soft. Nontender. Nondistended. MUSCULOSKELETAL: No obvious deformities. Bilateral groins incisions C/D/I. Bilateral lower extremity peripheral pulses are palpable NEUROLOGICAL: Awake and alert. No obvious cranial nerve deficits. Motor grossly within normal limits. A/P Assessment and Plan ASSESSMENT: Leaking abdominal aortic aneurysm 6.8 cm in maximum diameter s/p successful EVAR History of COPD Hypertension PLAN: NEURO: As needed Dilaudid for pain. Otherwise minimize sedation RESP: Nasal cannula oxygen. DuoNeb every 6 hours scheduled, every 2 hours as needed. EzPAP CV: LR at 42 ml per hour. 2D Echo ordered by Dr. Carlos pending GI: Diet per vascular surgery : Monitor renal function closely. Yip catheter. Maintain urine output more than 0.5 mL/kg/h ID: Perioperative antibiotics per vascular surgery HEME: Monitor CBC, CMP, coags as needed ENDO: Electrolyte replacement per CVICU protocol PROPH: Lovenox for DVT prophylaxis per Dr. Carlos LINES: Utilize peripheral IVs, central line if needed Level 2 Ok to transfer to CPCU with Tele from [facility] standpoint Audrey Jensen MD Mar 19, 2018 07:12
[2018-03-19] MEDS: ENALAPRIL MALEATE 10 MG TAB PO SCH ×2 (09:00→21:00)
--- NOTE | 2018-03-19 09:11 | PD.VS.PN ---
Subjective POD #: 1 Procedure(s): EVAR for ruptured aneurysm Subjective/Hospital Course Looks great; c/o sore throat but no abdominal pain neymar po No leg pain Objective Vitals/I&O Date Time Temp Pulse Resp B/P (MAP) Pulse Ox O2 Delivery O2 Flow Rate FiO2 03/19/18 07:00 98.7 99 18 106/56 (73) 94 118/52 (74) 03/19/18 04:22 97.8 85 18 106/60 (75) 98 118/54 (75) 03/19/18 03:20 93 03/18/18 23:07 98 Nasal Cannula 4.00 03/18/18 23:00 97.9 83 18 111/57 (75) 97 106/45 (65) 03/18/18 23:00 84 03/18/18 20:00 98.2 84 18 105/60 (75) 97 110/61 (77) 03/18/18 19:34 97 Nasal Cannula 4.00 03/18/18 19:00 69 03/18/18 17:58 98.0 74 16 126/62 (83) 97 122/64 (83) 03/18/18 16:00 96 Nasal Cannula 4.00 03/18/18 15:00 97.9 87 16 124/67 (86) 97 139/71 (93) 03/18/18 15:00 103 03/18/18 14:30 96.7 87 15 135/71 (92) 97 139/70 (93) 03/18/18 12:14 88 18 149/68 (95) 95 03/18/18 12:03 65 18 149/68 (95) 99 Nasal Cannula 2.00 03/18/18 11:22 86 18 132/71 (91) 98 03/18/18 10:19 98.1 91 20 129/79 (96) 98 03/19/18 03/19/18 03/19/18 07:00 15:00 23:00 Intake Total 240 ml Output Total 850 ml Balance -610 ml Exam: alert, oriented no groin hematomas Laboratory Laboratory Tests Test 03/18/18 11:20 03/18/18 11:59 03/18/18 15:59 03/19/18 04:12 White Blood Count 9.8 10.7 15.2 Red Blood Count 4.42 3.94 3.64 Hemoglobin 12.9 11.7 10.8 Hematocrit 38.3 33.8 31.6 Mean Corpuscular Volume 86.8 85.7 86.8 Mean Corpuscular Hemoglobin 29.1 29.7 29.7 Mean Corpuscular Hemoglobin Concent 33.6 34.7 34.2 Red Cell Distribution Width 14.8 14.9 14.9 Platelet Count 235 186 178 Mean Platelet Volume 7.5 6.8 7.4 Neutrophils (%) (Auto) 65.7 Lymphocytes (%) (Auto) 19.2 Monocytes (%) (Auto) 14.3 Eosinophils (%) (Auto) 0.3 Basophils (%) (Auto) 0.5 Neutrophils # (Auto) 6.4 Lymphocytes # (Auto) 1.9 Monocytes # (Auto) 1.4 Eosinophils # (Auto) 0.0 Basophils # (Auto) 0.0 CBC Comment DIFF FINAL Differential Comment Prothrombin Time 10.8 Prothromb Time International Ratio 1.1 Activated Partial Thromboplast Time 28.0 Urine Color LIGHT-YELLOW Urine Turbidity CLEAR Urine pH 7.5 Urine Specific [place] 1.026 Urine Protein NEG Urine Glucose (UA) NEG Urine Ketones NEG Urine Occult Blood MOD Urine Nitrite NEG Urine Bilirubin NEG Urine Urobilinogen LESS THAN 2.0 Urine Leukocyte Esterase NEG Urine RBC 6 Urine WBC 2 Urine Bacteria OCC Microscopic Urinalysis Comment CULT NOT INDICATED Blood Urea Nitrogen 10 Creatinine 0.50 Random Glucose 109 Calcium Level 8.1 Sodium Level 139 Potassium Level 4.0 Chloride Level 104 Carbon Dioxide Level 28.2 Anion Gap 7 Estimat Glomerular Filtration Rate 119 Assessment and Plan Assessment: (1) AAA (abdominal aortic aneurysm) Status: Acute Plan POD#1 s/p EVAR for ruptured aneurysm 1. HL IVF 2. Reg diet 3. Transfer to CPCU 4. Recheck Hct tomorrow Discharge Planning likely tomorrow (POD#2) Problem Qualifiers (1) AAA (abdominal aortic aneurysm): Qualified Codes: I71.4 - Abdominal aortic aneurysm, without rupture Ricardo Carlos MD Mar 19, 2018 09:11
[2018-03-19] MEDS: FAMOTIDINE 20 MG TAB PO SCH ×2 (10:03→21:00)
[2018-03-19] MEDS: DOCUSATE SODIUM 50 MG/SENNA 8.6 MG TAB PO SCH ×2 (10:03→21:00)
[2018-03-19] MEDS: ENOXAPARIN SODIUM 30 MG/0.3 ML SYRINGE SQ SCH (16:27)
--- NOTE | 2018-03-19 18:15 | ECHRPT ---
Indication: CHF CONCLUSIONS BP: / HR: Rhythm: Sinus Technical Quality:Fair FINDINGS LEFT VENTRICLE The left ventricular systolic function is normal with an estimated ejection fraction in the range of 60-65%. RIGHT VENTRICLE Normal right ventricular size and systolic function. LEFT ATRIUM The left atrial size is normal. RIGHT ATRIUM The right atrial size is normal. ATRIAL SEPTUM Normal atrial septal thickness without atrial level shunting by limited color doppler interrogation. AORTA The aortic root and proximal ascending aorta are normal in size on limited imaging. MITRAL VALVE Structurally normal mitral valve. No mitral valve stenosis or regurgitation. AORTIC VALVE Trileaflet aortic valve. No aortic valve stenosis or regurgitation. TRICUSPID VALVE Structurally normal tricuspid valve. No tricuspid valve stenosis or regurgitation. PULMONARY VALVE No pulmonary valve regurgitation or stenosis. VESSELS The inferior vena cava is normal in size. PERICARDIUM No pericardial effusion. Trever Nolasco MD (Electronically Signed) Final Date:19 March 2018 18:15
[2018-03-20] VITALS (11 sets, daily range): BP systolic 98–140; BP diastolic 56–71; PULSE 76–99; RESP 12–20; TEMP 97.3–100.1; O2SAT 94–97
[2018-03-20] MEDS ORDERED: ACETAMINOPHEN 325 MG TAB PO PRN (00:15)
[2018-03-20] MEDS ORDERED: SODIUM CHLORIDE FLUSH PRN IV FLUSH (00:15)
[2018-03-20 04:21] LABS: BASOPHIL % 0.3 % (0.0-2.0); EOSINOPHIL % 0.3 % (0.0-4.0); HEMOGLOBIN 10.8 GM/DL (11.6-15.3); LYMPH % 11.6 % (9.0-44.0); LYMPHOCYTE # 1.1 TH/MM3 (1.0-4.8); MEAN CELL VOLUME 87.5 FL (80.0-100.0); MEAN CORPUSCULAR HEMOGLOBIN 29.4 PG (27.0-34.0); MEAN CORPUSCULAR HGB CONC 33.7 % (32.0-36.0); MEAN PLATELET VOLUME 7.4 FL (7.0-11.0); MONO % 21.6 % (0.0-8.0); NEUT % 66.2 % (16.0-70.0); PLATELET COUNT 158 TH/MM3 (150-450); RED BLOOD COUNT 3.66 MIL/MM3 (4.00-5.30); WHITE BLOOD COUNT 9.1 TH/MM3 (4.0-11.0)
[2018-03-20] MEDS: RESP: ALBUTEROL 2.5 MG/IPRATROPIUM 0.5 MG NEB (SCH) INH ×4 (04:37→21:54)
[2018-03-20] MEDS: DOCUSATE SODIUM 50 MG/SENNA 8.6 MG TAB PO SCH ×2 (08:55→21:50)
[2018-03-20] MEDS: SODIUM CHLORIDE FLUSH BID IV FLUSH SCH ×2 (08:55→21:51)
[2018-03-20] MEDS: FAMOTIDINE 20 MG TAB PO SCH ×2 (08:55→21:50)
[2018-03-20] MEDS: ENALAPRIL MALEATE 10 MG TAB PO SCH ×2 (08:55→21:50)
--- NOTE | 2018-03-20 09:24 | EKG ---
Date Performed: 03/18/2018 Time Performed: 12:00:11 PTAGE: 82 years EKG: Sinus rhythm SEPTAL MYOCARDIAL INFARCTION ABNORMAL ECG PREVIOUS TRACING : 02/02/2015 08.43 DOCTOR: Drake Acharya Interpretating Date/Time 03/20/2018 09:18:00
--- NOTE | 2018-03-20 12:09 | PD.VS.PN ---
Subjective POD #: 2 Procedure(s): EVAR for ruptured aneurysm Subjective/Hospital Course C/o sore throat no abdominal pain or back pain neymar po liquid only voiding Hct stable Objective Vitals/I&O Date Time Temp Pulse Resp B/P (MAP) Pulse Ox O2 Delivery O2 Flow Rate FiO2 03/20/18 11:08 96 03/20/18 11:08 99.1 99 20 98/66 (77) 94 03/20/18 11:06 94 Room Air 03/20/18 09:10 95 21 03/20/18 07:27 97.3 96 16 130/71 (90) 94 03/20/18 07:26 97 Nasal Cannula 2.00 03/20/18 07:26 96 03/20/18 04:41 97 Nasal Cannula 2.00 03/20/18 03:00 78 03/20/18 03:00 97 Nasal Cannula 2.00 03/20/18 03:00 99.0 76 12 100/64 (76) 96 03/20/18 00:00 100.1 03/19/18 23:00 101.4 68 12 110/55 (73) 90 03/19/18 23:00 68 03/19/18 23:00 96 Nasal Cannula 2.00 03/19/18 21:17 92 21 03/19/18 19:00 73 03/19/18 19:00 98.8 66 12 110/55 (73) 91 Arterial Line 03/19/18 15:00 99.2 95 18 113/57 (75) 99 110/39 (62) 03/20/18 03/20/18 03/20/18 07:00 15:00 23:00 Intake Total 930 ml Output Total 950 ml Balance -20 ml Exam: groins soft feet warm no abdominal tenderness Laboratory Laboratory Tests Test 03/20/18 03:40 White Blood Count 9.1 Red Blood Count 3.66 Hemoglobin 10.8 Hematocrit 32.0 Mean Corpuscular Volume 87.5 Mean Corpuscular Hemoglobin 29.4 Mean Corpuscular Hemoglobin Concent 33.7 Red Cell Distribution Width 15.0 Platelet Count 158 Mean Platelet Volume 7.4 Neutrophils (%) (Auto) 66.2 Lymphocytes (%) (Auto) 11.6 Monocytes (%) (Auto) 21.6 Eosinophils (%) (Auto) 0.3 Basophils (%) (Auto) 0.3 Neutrophils # (Auto) 6.0 Lymphocytes # (Auto) 1.1 Monocytes # (Auto) 2.0 Eosinophils # (Auto) 0.0 Basophils # (Auto) 0.0 CBC Comment DIFF FINAL Differential Comment Assessment and Plan Assessment: (1) AAA (abdominal aortic aneurysm) Status: Acute Plan POD#2 s/p EVAR for ruptured aneurysm 1. Looks great - sore throat likely from ETT and pt related h/o esophageal dysmotility 2. OOB /PT Discharge Planning later today or tomorrow - up to patient Problem Qualifiers (1) AAA (abdominal aortic aneurysm): Qualified Codes: I71.4 - Abdominal aortic aneurysm, without rupture Ricardo Carlos MD Mar 20, 2018 12:09
[2018-03-20] MEDS: ENOXAPARIN SODIUM 30 MG/0.3 ML SYRINGE SQ SCH (14:57)
[2018-03-21 03:00] VITALS: BP 129/68; PULSE 81; RESP 18; TEMP 98.5; O2SAT 95
[2018-03-21] MEDS: RESP: ALBUTEROL 2.5 MG/IPRATROPIUM 0.5 MG NEB (SCH) INH ×2 (03:04→09:42)
[2018-03-21 07:18] VITALS: BP 129/68; PULSE 74; RESP 18; TEMP 98.4; O2SAT 92
[2018-03-21] MEDS: ENALAPRIL MALEATE 10 MG TAB PO SCH (08:38)
[2018-03-21] MEDS: DOCUSATE SODIUM 50 MG/SENNA 8.6 MG TAB PO SCH (08:38)
[2018-03-21] MEDS: SODIUM CHLORIDE FLUSH BID IV FLUSH SCH (08:38)
[2018-03-21] MEDS: FAMOTIDINE 20 MG TAB PO SCH (08:39)
--- NOTE | 2018-03-21 10:05 | PD.VS.PN ---
Subjective POD #: 3 Procedure(s): EVAR for ruptured aneurysm Subjective/Hospital Course neymar po no abdominal pain Objective Vitals/I&O Date Time Temp Pulse Resp B/P (MAP) Pulse Ox O2 Delivery O2 Flow Rate FiO2 03/21/18 07:18 98.4 74 18 129/68 (88) 92 03/21/18 07:18 74 03/21/18 07:17 92 Room Air 03/21/18 03:00 81 03/21/18 03:00 98.5 81 18 129/68 (88) 95 03/21/18 03:00 96 Room Air 03/20/18 23:00 96 03/20/18 23:00 95 Room Air 03/20/18 23:00 98.9 96 20 126/69 (88) 95 03/20/18 21:54 21 03/20/18 19:00 95 Room Air 03/20/18 19:00 98.8 98 20 140/68 (92) 95 03/20/18 19:00 96 03/20/18 15:10 93 03/20/18 15:10 94 Room Air 03/20/18 15:09 99.4 93 20 112/56 (74) 94 03/20/18 11:08 96 03/20/18 11:08 99.1 99 20 98/66 (77) 94 03/20/18 11:06 94 Room Air 03/21/18 03/21/18 03/21/18 07:00 15:00 23:00 Intake Total 480 ml Balance 480 ml Exam: groins ok abdomen soft Assessment and Plan Assessment: (1) AAA (abdominal aortic aneurysm) Status: Acute Plan POD#3 s/p EVAR for ruptured aneurysm 1. Looks great 2. Ready for d/c Discharge Planning today Problem Qualifiers (1) AAA (abdominal aortic aneurysm): Qualified Codes: I71.4 - Abdominal aortic aneurysm, without rupture Ricardo Carlos MD Mar 21, 2018 10:05
--- NOTE | 2018-03-21 10:06 | PD.VS.DC ---
cc: Ricardo Carlos MD Discharge Summary Admission Date: Mar 18, 2018 at 14:25 Discharge Date: Mar 21, 2018 Admission Diagnosis: Discharge Diagnosis: (1) AAA (abdominal aortic aneurysm) ICD Codes: I71.4 - Abdominal aortic aneurysm, without rupture Status: Acute Brief History from admission 82/F with a PMH of COPD/ HTN/ Skin Cancer Pt denied AR/ cardiac hx Pt Arrived to the ED c/o "gas pains" lower pelvic pain times a few days that worsened over night Imaging studies obtained and it was discovered that the pt has a leaking infrarenal AAA (6.8 cm) Pt reported a known hx a few years ago but was told it was small, no f/u and pt does not recall the size Procedure(s): EVAR for ruptured aneurysm Significant Findings Laboratory Tests Test 03/18/18 11:20 03/18/18 11:59 03/18/18 15:59 03/19/18 04:12 Monocytes (%) (Auto) 14.3 % (0.0-8.0) Monocytes # (Auto) 1.4 TH/MM3 (0-0.9) Urine Occult Blood MOD (NEG) Urine RBC 6 /hpf (0-3) Urine Bacteria OCC /hpf (NONE) Red Blood Count 3.94 MIL/MM3 (4.00-5.30) 3.64 MIL/MM3 (4.00-5.30) Hematocrit 33.8 % (35.0-46.0) 31.6 % (35.0-46.0) Mean Platelet Volume 6.8 FL (7.0-11.0) White Blood Count 15.2 TH/MM3 (4.0-11.0) Hemoglobin 10.8 GM/DL (11.6-15.3) Random Glucose 109 MG/DL (74-106) Calcium Level 8.1 MG/DL (8.5-10.1) Test 03/20/18 03:40 Red Blood Count 3.66 MIL/MM3 (4.00-5.30) Hemoglobin 10.8 GM/DL (11.6-15.3) Hematocrit 32.0 % (35.0-46.0) Monocytes (%) (Auto) 21.6 % (0.0-8.0) Monocytes # (Auto) 2.0 TH/MM3 (0-0.9) Hospital Course: The patient tolerated the procedure well and post-operatively her main complain was a sore throat. She was tolerated soft diet, voiding on her own and able to get OOB. No more abdominal pain as preop. Discharge Condition: Good Discharge Disposition: Discharge Home Any questions or concerns: Call [facility] at [facility] [phone] Ricardo Carlos MD Mar 21, 2018 10:06
== END 2018-03-21 11:45 | disposition home or self-care (01) | DRG 269 ==
LOC: HCVO 10:10 → HSDI 14:25 → HCVI 14:30
PROVIDERS: ADMIT Surgery; ATTEND Surgery
PROC: 04V03D6 (ICD-10-PCS; principal; 2018-03-18 12:25)
DX: I71.3 Abdominal aortic aneurysm, ruptured (principal); J44.9 Chronic obstructive pulmonary disease, unspecified; I10 Essential (primary) hypertension; K22.4 Dyskinesia of esophagus; Z88.0 Allergy status to penicillin; Z85.828 Personal history of other malignant neoplasm of skin; Z87.891 Personal history of nicotine dependence
CPT/HCPCS: 80048; 81001; 85025; 85027; 85610; 85730; 86850; 86900; 86901; 86920; 93005; 93308; 94640; 94664; 99291; C1725; C1769; C1874; J1100; J1644; J1650; J2370; J2405; J2710; J2720; J3010; J3370

== ENCOUNTER 2018-03-29 17:25 | Observation (INO) | payer MEDICARE ==
[~2018-03-29] VITALS: Ht 165.1 cm; Wt 50.0 kg
[~2018-03-29 17:25] MED LIST changes: -ALBU1AER INH; +ALBUAER3 INH; -IPRA0.02 INH; +IPRASOL INH; -NEBUKIT4
[2018-03-29] MEDS ORDERED: IOHEXOL 350 MG/ML 10 ML VIAL (for RAD DIAG) IVCONTRAST ONE (17:26)
[2018-03-29 17:28] VITALS: BP 105/67; PULSE 121; RESP 20; TEMP 99; O2SAT 96
[2018-03-29 18:07] VITALS: BP 147/65; PULSE 109; RESP 18; O2SAT 95
--- NOTE | 2018-03-29 18:08 | RADRPT ---
EXAM DATE/TIME: 03/29/2018 17:45 [place] COMPARISON: No previous studies available for comparison. INDICATIONS : Right foot pain with no known injury. MEDICAL HISTORY : None. SURGICAL HISTORY : None. ENCOUNTER: Initial ACUITY: 2 days PAIN SCORE: 8/10 LOCATION: Right foot, plantar surface. FINDINGS: Osseous structures are osteopenic. There is evidence of periosteal thickening along the mid shaft of the 2nd through 4th metatarsal bones without evidence of fracture. No radiopaque foreign bodies. N o significant soft tissue swelling. CONCLUSION: Periosteal thickening along the mid shaft of the 2nd through 4th metatarsal bones could represent str ess related injury or hypertrophic pulmonary osteoarthropathy. Recommend correlation with clinical e xam for point tenderness. Rudy Benavides MD on March 29, 2018 at 18:05 Board Certified Radiologist. This report was verified electronically.
[2018-03-29 18:38] LABS: AUTOMATED NEUTROPHIL # 15.5 TH/MM3 (1.8-7.7); BASOPHIL # 0.1 TH/MM3 (0-0.2); BASOPHIL % 0.3 % (0.0-2.0); HEMATOCRIT 35.4 % (35.0-46.0); HEMOGLOBIN 11.9 GM/DL (11.6-15.3); LYMPH % 7.4 % (9.0-44.0); LYMPHOCYTE # 1.4 TH/MM3 (1.0-4.8); MEAN CELL VOLUME 86.6 FL (80.0-100.0); MEAN CORPUSCULAR HGB CONC 33.5 % (32.0-36.0); MEAN PLATELET VOLUME 6.8 FL (7.0-11.0); MONO % 11.9 % (0.0-8.0); MONOCYTE # 2.3 TH/MM3 (0-0.9); NEUT % 80.4 % (16.0-70.0); PLATELET COUNT 500 TH/MM3 (150-450); RED BLOOD COUNT 4.09 MIL/MM3 (4.00-5.30); RED CELL DISTRIBUTION WIDTH 14.7 % (11.6-17.2); WHITE BLOOD COUNT 19.3 TH/MM3 (4.0-11.0)
[2018-03-29] MEDS ORDERED: ONDANSETRON HCL 4 MG/2 ML VIAL IV PUSH ONE (18:45)
[2018-03-29 18:50] LABS: ALBUMIN 2.9 GM/DL (3.4-5.0); AST (GOT) 16 U/L (15-37); BICARBONATE 27.8 MEQ/L (21.0-32.0); BLOOD UREA NITROGEN 11 MG/DL (7-18); CALCIUM 8.8 MG/DL (8.5-10.1); CHLORIDE 98 MEQ/L (98-107); GLOMERULAR FILTRATION RATE 81 ML/MIN (>89); GLUCOSE,RANDOM 118 MG/DL (74-106); SODIUM (NA) 134 MEQ/L (136-145)
[2018-03-29 18:52] LABS: ALT (GPT) 19 U/L (10-53)
[2018-03-29 18:53] LABS: ALKALINE PHOSPHATASE 163 U/L (45-117); INTERNATIONAL NORMALIZED RATIO 1.1 RATIO; PROTHROMBIN TIME - PATIENT 10.8 SEC (9.8-11.6); TOTAL BILIRUBIN ADULT 0.5 MG/DL (0.2-1.0); TOTAL PROTEIN 6.5 GM/DL (6.4-8.2)
--- NOTE | 2018-03-29 18:55 | PD ---
HPI Chief Complaint: Pain: Acute or Chronic Time Seen by Provider: 18:45 Travel History International Travel<30 days: No Contact w/Intl Traveler<30days: No Traveled to known affect area: No History of Present Illness HPI This is a 82-year-old female with history of COPD, hypertension, abdominal aortic aneurysm repair 11 days ago, presents today with complaints of severe foot pain. Patient reports that she has significant foot pain on the bottom of her third and fourth toes. She reports that she cannot stand. She denies any injury. She denies any fevers, chills. Patient states that the pain is starting to extend and now it i lateral foot. Patient denies any cool extremities. She states that she noted the pain shortly after her surgery. 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) Cardiovascular Problems: Yes (SMALL AORTIC ANEURYSM) High Cholesterol: No Chemotherapy: No Chest Pain: No Congestive Heart Failure: No COPD: Yes Diabetes: No Diminished Hearing: No Endocrine: No Gastrointestinal Disorders: No Genitourinary: No Hypertension: Yes Immune Disorder: No Musculoskeletal: Yes (BORN MISSING A SINGLE VERTIBRA) Neurologic: No Psychiatric: Yes Reproductive: No Respiratory: Yes (COPD) Immunizations Current: No Radiation Therapy: No Sleep Apnea: No Tetanus Vaccination: > 5 Years Influenza Vaccination: No ?: Not Menopausal: Yes Past Surgical History Abdominal Surgery: Yes (AAA REPAIR) Tonsillectomy: Yes Other Surgery: Yes (TONSILECTOMY) Social History Alcohol Use: No Tobacco Use: No (quit ) Substance Use: No Allergies-Medications (Allergen,Severity, Reaction): Coded Allergies: ciprofloxacin (Unverified Allergy, Intermediate, RASH, HIVES, 03/29/18) penicillin G (Unverified Allergy, Intermediate, RASH, HIVES, 03/29/18) Reported Meds & Prescriptions Reported Meds & Active Scripts Active Reported Duoneb (Ipratropium-Albuterol Neb) 0.5-2.5 Mg/3 Ml Neb 1 Nebule INH Q6HR NEB Proair Hfa 8.5 GM Inh (Albuterol Sulfate) 90 Mcg/Act Aer 1 Puff INH Q4H PRN 108 mcg/actuation Vasotec (Enalapril Maleate) 10 Mg Tab 10 Mg PO BID Review of Systems Except as stated in HPI: all other systems reviewed are Neg HENT: No: Headaches, Lightheadedness Cardiovascular: No: Chest Pain or Discomfort, Palpitations Respiratory: No: Cough, Shortness of Breath Gastrointestinal: Positive: Loss of Appetite (Secondary to the pain in her foot ), No: Nausea, Vomiting, Abdominal Pain Genitourinary: No: Frequency, Dysuria Musculoskeletal: Positive: Limited ROM (Secondary to pain.), Pain (Right foot mainly on the bottom under her fourth and third toes.) Skin: Positive Other (Redness to her lateral portion of her foot.), No Lesions Neurologic: No: Weakness, Dizziness Physical Exam Narrative GENERAL: Well-developed well-nourished female in no acute respiratory distress. SKIN: Focused skin assessment warm/dry. HEAD: Atraumatic. Normocephalic. EYES: Pupils equal and round. No scleral icterus. No injection or drainage. ENT: No nasal bleeding or discharge. Mucous membranes pink and moist. NECK: Trachea midline. Supple. CARDIOVASCULAR: Regular rate and rhythm. No murmur appreciated. RESPIRATORY: No accessory muscle use. Clear to auscultation. Breath sounds equal bilaterally. GASTROINTESTINAL: Abdomen soft, non-tender, nondistended. Hepatic and splenic margins not palpable. MUSCULOSKELETAL: No obvious deformities. No clubbing. No cyanosis. No edema. Patient has slight redness to the dorsum of her foot just below the toes and laterally. There is no fluctuance or draining lesion. Tenderness to palpation on the bottom of her foot at the level of the metatarsals of 3 and 4. Palpable dorsalis pedis pulse. Cap refill less than 3 seconds on her great toe. NEUROLOGICAL: Awake and alert. No obvious cranial nerve deficits. Motor grossly within normal limits. Normal speech. Data Data Last Documented VS Vital Signs Date Time Temp Pulse Resp B/P (MAP) Pulse Ox O2 Delivery O2 Flow Rate FiO2 03/29/18 19:00 100.0 87 16 124/66 (85) 95 Room Air Orders Orders Foot, Complete ([id number]) (03/29/18 ) Complete Blood Count With Diff (03/29/18 17:34) Comprehensive Metabolic Panel (03/29/18 17:34) Prothrombin Time / Inr (Pt) (03/29/18 17:34) Act Partial Throm Time (Ptt) (03/29/18 17:34) Morphine Inj (Morphine Inj) (03/29/18 18:45) Ondansetron Inj (Zofran Inj) (03/29/18 18:45) Blood Culture (03/29/18 19:04) Cta Runoff W Iv Contrast W 3d (03/29/18 ) Labs Laboratory Tests Test 03/29/18 18:15 White Blood Count 19.3 TH/MM3 Red Blood Count 4.09 MIL/MM3 Hemoglobin 11.9 GM/DL Hematocrit 35.4 % Mean Corpuscular Volume 86.6 FL Mean Corpuscular Hemoglobin 29.0 PG Mean Corpuscular Hemoglobin Concent 33.5 % Red Cell Distribution Width 14.7 % Platelet Count 500 TH/MM3 Mean Platelet Volume 6.8 FL Neutrophils (%) (Auto) 80.4 % Lymphocytes (%) (Auto) 7.4 % Monocytes (%) (Auto) 11.9 % Eosinophils (%) (Auto) 0.0 % Basophils (%) (Auto) 0.3 % Neutrophils # (Auto) 15.5 TH/MM3 Lymphocytes # (Auto) 1.4 TH/MM3 Monocytes # (Auto) 2.3 TH/MM3 Eosinophils # (Auto) 0.0 TH/MM3 Basophils # (Auto) 0.1 TH/MM3 CBC Comment AUTO DIFF Differential Comment AUTO DIFF CONFIRMED Prothrombin Time 10.8 SEC Prothromb Time International Ratio 1.1 RATIO Activated Partial Thromboplast Time 28.4 SEC Blood Urea Nitrogen 11 MG/DL Creatinine 0.70 MG/DL Random Glucose 118 MG/DL Total Protein 6.5 GM/DL Albumin 2.9 GM/DL Calcium Level 8.8 MG/DL Alkaline Phosphatase 163 U/L Aspartate Amino Transf (AST/SGOT) 16 U/L Alanine Aminotransferase (ALT/SGPT) 19 U/L Total Bilirubin 0.5 MG/DL Sodium Level 134 MEQ/L Potassium Level 4.1 MEQ/L Chloride Level 98 MEQ/L Carbon Dioxide Level 27.8 MEQ/L Anion Gap 8 MEQ/L Estimat Glomerular Filtration Rate 81 ML/MIN [facility] Medical Decision Making Medical Screen Exam Complete: Yes Emergency Medical Condition: Yes Differential Diagnosis Cellulitis versus osteomyelitis versus embolic event Narrative Course 82-year-old female status post abdominal aortic aneurysm repair 11 days ago, presents today with severe right foot pain. The patient has mild redness to the right lateral dorsum of her foot. There is also tenderness on the plantar side of her third and fourth metatarsal. There is no blue coloration noted. Labs are pending at this time. The patient will likely need a CT runoff to evaluate for embolic event. Patient will also be signed out to the physician replaced me at change of shift. Disposition will be per that physician. Diagnosis Primary Impression: Right foot pain Additional Impressions: Low grade fever Leukocytosis Status post AAA (abdominal aortic aneurysm) repair Balaji Oliva MD Mar 29, 2018 18:55
[2018-03-29 19:00] VITALS: BP 124/66; PULSE 87; RESP 16; TEMP 100; O2SAT 95
[2018-03-29] MEDS: MORPHINE SULFATE 4 MG/ML INJ IV PUSH ONE ×2 (19:00→19:11)
--- NOTE | 2018-03-29 21:09 | RADRPT ---
EXAM DATE/TIME: 03/29/2018 19:37 [place] COMPARISON: CTA THORACIC ABDOMINAL AORTA W 3D RECON, March 18, 2018, 6:20. INDICATIONS : Pain bottom of right foot IV CONTRAST: 97 cc Omnipaque 350 (iohexol) IV RADIATION DOSE: 1.62 CTDIvol (mGy) MEDICAL HISTORY : Hypertension. Chronic obstructive pulmonary disease. SURGICAL HISTORY : Angioplasty. ENCOUNTER: Initial ACUITY: 1 day PAIN SCALE: 10/10 LOCATION: Runoff TECHNIQUE: Volumetric scanning was performed using a multi-row detector CT scanner. The data was post processed with a variety of visualization algorithms including full volume maximum intensity projection, multi -planar sliding thin slab reformation, curved planar reformation, and surface rendering techniques. Using automated exposure control and adjustment of the mA and/or kV according to patient size, radiat ion dose was kept as low as reasonably achievable to obtain optimal diagnostic quality images. DICO M format image data is available electronically for review and comparison. FINDINGS: Comparison is March 18. There is interval placement of an aortobiiliac stent graft. There is a probab le tiny endoleak just above the bifurcation. Celiac and superior mesenteric arteries are patent proximally. Both renal arteries are patent. Flow i s present in both internal and external iliac arteries. On the right side there is moderate atherosclerotic disease in the femoral artery and popliteal arter y. There is initially three-vessel runoff in the right leg with 2 vessel runoff noted at the right an kle. No definite evidence for embolic disease on the right. On the left side there is moderate atherosclerotic disease in the femoral and popliteal arteries with out hemodynamically significant stenosis. On the left side there is initially three-vessel runoff whi ch reduces to single vessel runoff on the left side without definite evidence for embolic disease. No acute findings the visualized liver, spleen, adrenals, kidneys or pancreas. Stable left renal cyst . CONCLUSION: 1. Status post placement of aortobiiliac stent graft with evidence of trace endoleak distally just ab ove the bifurcation. 2. Moderate atherosclerotic disease in the iliac, femoral and popliteal arteries without hemodynamica lly significant stenosis. 3. On the right side is two-vessel runoff of the right ankle without definite evidence for embolic di sease. 4. On the left side there is single vessel runoff of the left ankle without definite evidence for emb olic disease. Alvaro Garcia MD on March 29, 2018 at 20:58 Board Certified Radiologist. This report was verified electronically.
[2018-03-29] MEDS ORDERED: AZTREONAM INJ 2,000 MG in SODIUM CHLORIDE 0.9% INJ 100 ML IV STA (21:34)
[2018-03-29] MEDS ORDERED: VANCOMYCIN INJ 1,000 MG in SODIUM CHLOR 0.9% 250 ML INJ 250 ML IV STA (21:34)
[2018-03-29] MEDS ORDERED: metroNIDAZOLE 500 MG INJ 100 ML IV STA (21:34)
--- NOTE | 2018-03-29 21:50 | PD ---
Physical Exam Date Seen by Provider: Mar 29, 2018 Time Seen by Provider: 19:00 Narrative Patient is signed out to me at [address] Oliva, please see Dr. Oliva's notes for further details. Patient has had some right foot pain for the last few days, concerning for possible cellulitis but also concerning for possible emboli considering she had a AAA repair just [address] Carlos. Laboratory Tests Test 03/29/18 18:15 White Blood Count 19.3 TH/MM3 (4.0-11.0) Platelet Count 500 TH/MM3 (150-450) Mean Platelet Volume 6.8 FL (7.0-11.0) Neutrophils (%) (Auto) 80.4 % (16.0-70.0) Lymphocytes (%) (Auto) 7.4 % (9.0-44.0) Monocytes (%) (Auto) 11.9 % (0.0-8.0) Neutrophils # (Auto) 15.5 TH/MM3 (1.8-7.7) Monocytes # (Auto) 2.3 TH/MM3 (0-0.9) Random Glucose 118 MG/DL (74-106) Albumin 2.9 GM/DL (3.4-5.0) Alkaline Phosphatase 163 U/L (45-117) Sodium Level 134 MEQ/L (136-145) Estimat Glomerular Filtration Rate 81 ML/MIN (>89) Last 24 hours Impressions Foot X-Ray 03/29/18 0000 Signed Impressions: Service Date/Time: Thursday, March 29, 2018 17:45 - CONCLUSION: Periosteal thickening along the mid shaft of the 2nd through 4th metatarsal bones could represent stress related injury or hypertrophic pulmonary osteoarthropathy. Recommend correlation with clinical exam for point tenderness. Rudy Benavides MD Aorta w/Runoff CTA 03/29/18 0000 Signed Impressions: Service Date/Time: Thursday, March 29, 2018 19:37 - CONCLUSION: 1. Status post placement of aortobiiliac stent graft with evidence of trace endoleak distally just above the bifurcation. 2. Moderate atherosclerotic disease in the iliac, femoral and popliteal arteries without hemodynamically significant stenosis. 3. On the right side is two-vessel runoff of the right ankle without definite evidence for embolic disease. 4. On the left side there is single vessel runoff of the left ankle without definite evidence for embolic disease. Alvaro Garcia MD Findings were discussed with Dr. Carlos who states that he does not think that this is a surgical issue at this point, patient does not have emboli on CAT scan. Considering her leukocytosis and previous discussion with Dr. Oliva, patient is initiated on IV antibiotics for possible cellulitis with a possibility of osteomyelitis as well considering the bone findings. At this point, case is discussed with Dr. Whitney for admission for further treatment. Data Data Last Documented VS Vital Signs Date Time Temp Pulse Resp B/P (MAP) Pulse Ox O2 Delivery O2 Flow Rate FiO2 03/29/18 19:00 100.0 87 16 124/66 (85) 95 Room Air Orders Orders Foot, Complete ([id number]) (03/29/18 ) Complete Blood Count With Diff (03/29/18 17:34) Comprehensive Metabolic Panel (03/29/18 17:34) Prothrombin Time / Inr (Pt) (03/29/18 17:34) Act Partial Throm Time (Ptt) (03/29/18 17:34) Morphine Inj (Morphine Inj) (03/29/18 18:45) Ondansetron Inj (Zofran Inj) (03/29/18 18:45) Blood Culture (03/29/18 19:04) Cta Runoff W Iv Contrast W 3d (03/29/18 ) Iohexol 350 Inj (Omnipaque 350 Inj) (03/29/18 17:26) Aztreonam Inj (Azactam Inj) (03/29/18 21:34) Metronidazole 500 Mg Inj (Flagyl 500 Mg (03/29/18 21:34) Vancomycin Inj (Vancomycin Inj) (03/29/18 21:34) Admit Order (Ed Use Only) (03/29/18 21:41) Labs Laboratory Tests Test 03/29/18 18:15 White Blood Count 19.3 TH/MM3 Red Blood Count 4.09 MIL/MM3 Hemoglobin 11.9 GM/DL Hematocrit 35.4 % Mean Corpuscular Volume 86.6 FL Mean Corpuscular Hemoglobin 29.0 PG Mean Corpuscular Hemoglobin Concent 33.5 % Red Cell Distribution Width 14.7 % Platelet Count 500 TH/MM3 Mean Platelet Volume 6.8 FL Neutrophils (%) (Auto) 80.4 % Lymphocytes (%) (Auto) 7.4 % Monocytes (%) (Auto) 11.9 % Eosinophils (%) (Auto) 0.0 % Basophils (%) (Auto) 0.3 % Neutrophils # (Auto) 15.5 TH/MM3 Lymphocytes # (Auto) 1.4 TH/MM3 Monocytes # (Auto) 2.3 TH/MM3 Eosinophils # (Auto) 0.0 TH/MM3 Basophils # (Auto) 0.1 TH/MM3 CBC Comment AUTO DIFF Differential Comment AUTO DIFF CONFIRMED Prothrombin Time 10.8 SEC Prothromb Time International Ratio 1.1 RATIO Activated Partial Thromboplast Time 28.4 SEC Blood Urea Nitrogen 11 MG/DL Creatinine 0.70 MG/DL Random Glucose 118 MG/DL Total Protein 6.5 GM/DL Albumin 2.9 GM/DL Calcium Level 8.8 MG/DL Alkaline Phosphatase 163 U/L Aspartate Amino Transf (AST/SGOT) 16 U/L Alanine Aminotransferase (ALT/SGPT) 19 U/L Total Bilirubin 0.5 MG/DL Sodium Level 134 MEQ/L Potassium Level 4.1 MEQ/L Chloride Level 98 MEQ/L Carbon Dioxide Level 27.8 MEQ/L Anion Gap 8 MEQ/L Estimat Glomerular Filtration Rate 81 ML/MIN [facility] Medical Record Reviewed: Yes Supervised Visit with PAYTON: Yes Diagnosis Primary Impression: Right foot pain Additional Impressions: Low grade fever Leukocytosis Status post AAA (abdominal aortic aneurysm) repair Cellulitis of right foot Admitting Information Admitting Physician Requests: it Theo Meyer MD Mar 29, 2018 21:49
[2018-03-29] MEDS ORDERED: ONDANSETRON HCL 4 MG/2 ML VIAL IV PUSH PRN (22:00)
[2018-03-29] MEDS ORDERED: RESP: ALBUTEROL 2.5 MG/IPRATROPIUM 0.5 MG NEB (PRN) NEB (22:00)
[2018-03-29] MEDS ORDERED: ACETAMINOPHEN/HYDROcodone 325 MG/7.5 MG TAB PO PRN (22:00)
[2018-03-29] MEDS ORDERED: MORPHINE SULFATE 4 MG/ML INJ IV PUSH PRN (22:00)
[2018-03-29] MEDS ORDERED: ACETAMINOPHEN 325 MG TAB PO PRN (22:00)
[2018-03-29] MEDS ORDERED: Vancomycin Consult Pharmacy 1 EA OTHER SCH (22:00)
[2018-03-29] MEDS ORDERED: VANCOMYCIN 1,000 MG/NS 250 ML IV ONE ×2 (22:00)
[2018-03-29 23:20] VITALS: BP 98/55; PULSE 66; RESP 16; O2SAT 94
[2018-03-30] VITALS: BP 120/62; PULSE 96; RESP 18; TEMP 98.2; O2SAT 95
[2018-03-30] MEDS: diphenhydrAMINE HCL 25 MG CAP PO PRN ×4 (03:47→21:01)
[2018-03-30 05:15] VITALS: BP 115/68; PULSE 78; RESP 22; TEMP 98; O2SAT 96
[2018-03-30] MEDS: RESP: ALBUTEROL 2.5 MG/IPRATROPIUM 0.5 MG NEB (SCH) NEB ×4 (07:38→19:44)
[2018-03-30 07:56] VITALS: BP 100/56; PULSE 93; RESP 18; TEMP 99.2; O2SAT 97
[2018-03-30 07:56] LABS: AUTOMATED NEUTROPHIL # 13.3 TH/MM3 (1.8-7.7); BASOPHIL % 0.1 % (0.0-2.0); EOSINOPHIL # 0.1 TH/MM3 (0-0.4); EOSINOPHIL % 0.9 % (0.0-4.0); HEMATOCRIT 32.4 % (35.0-46.0); LYMPH % 7.8 % (9.0-44.0); LYMPHOCYTE # 1.2 TH/MM3 (1.0-4.8); MEAN CELL VOLUME 86.8 FL (80.0-100.0); MEAN CORPUSCULAR HEMOGLOBIN 29.4 PG (27.0-34.0); MEAN CORPUSCULAR HGB CONC 33.8 % (32.0-36.0); MEAN PLATELET VOLUME 6.7 FL (7.0-11.0); MONO % 6.3 % (0.0-8.0); NEUT % 84.9 % (16.0-70.0); PLATELET COUNT 458 TH/MM3 (150-450); RED BLOOD COUNT 3.74 MIL/MM3 (4.00-5.30); RED CELL DISTRIBUTION WIDTH 14.5 % (11.6-17.2); WHITE BLOOD COUNT 15.6 TH/MM3 (4.0-11.0)
[2018-03-30 08:13] LABS: BICARBONATE 28.8 MEQ/L (21.0-32.0); CALCIUM 8.6 MG/DL (8.5-10.1); CREATININE 0.62 MG/DL (0.50-1.00)
[2018-03-30] MEDS ORDERED: ENALAPRIL MALEATE 10 MG TAB PO SCH (09:00)
--- NOTE | 2018-03-30 10:50 | HHI.HP ---
HPI Service [facility] Hospitalists Primary Care Physician Inder Meeks M.D. Admission Diagnosis Sepsis/right foot cellulitis/possible osteomyelitis Chief Complaint: foot pain Travel History International Travel<30 Days: No Contact w/Intl Traveler <30 Da: No Traveled to Known Affected Are: No History of Present Illness Ms. Huffman is a pleasant 82 y/o WF with PMH which includes COPD, tobacco abuse, HTN, AAA s/p EVAR for ruptured aneurysm 03/18/18. Patient presented to the ER last night with complaints of severe foot pain. Patient reports that she has significant foot pain on the bottom of her third and fourth toes. She reports that she cannot stand. She denies any injury. She denies any fevers, chills. Patient states that the pain is starting to extend and also painful on lateral foot. Patient denies any cool extremities. She states that she noted the pain shortly after her surgery. Foot x-ray reviewed and revealed periosteal thickening along the mid shaft on the second through fourth metatarsal bones could represent stress related injury or hypertrophic osteoarthropathy CTA aorta with runoff reveals status post placement of aortobiiliac stent graft with evidence of trace endoleak distally just above the bifurcation. Moderate atherosclerotic disease in the iliac femoral and popliteal arteries without hemodynamically significant stenosis. On the right side is two-vessel runoff of the right ankle without definitive evidence of embolic disease. On the left side there is single-vessel runoff of the left ankle without definitive evidence of embolic disease. Past Family Social History Past Medical History COPD Tobacco abuse HTN AAA S/P EVAR for ruptured aneurysm on 03/18/[address] Carlos Past Surgical History Tonsillectomy EVAR for ruptured aneurysm 03/18/18 Reported Medications Duoneb (Ipratropium-Albuterol Neb) 0.5-2.5 Mg/3 Ml Neb 1 Nebule INH Q6HR NEB Proair Hfa 8.5 GM Inh (Albuterol Sulfate) 90 Mcg/Act Aer 1 Puff INH Q4H PRN 108 mcg/actuation Vasotec (Enalapril Maleate) 10 Mg Tab 10 Mg PO BID Allergies: Coded Allergies: ciprofloxacin (Unverified Allergy, Intermediate, RASH, HIVES, 03/29/18) penicillin G (Unverified Allergy, Intermediate, RASH, HIVES, 03/29/18) Family History noncontributory Social History History of tobacco use 50 Pack year history Denies any alcohol or illicit drug use Physical Exam Vital Signs Vital Signs Date Time Temp Pulse Resp B/P (MAP) Pulse Ox O2 Delivery O2 Flow Rate FiO2 03/30/18 07:56 99.2 93 18 100/56 (71) 97 03/30/18 05:15 98.0 78 22 115/68 (84) 96 03/30/18 00:00 98.2 96 18 120/62 (81) 95 03/29/18 23:20 66 16 98/55 (69) 94 Room Air 03/29/18 23:18 03/29/18 19:00 100.0 87 16 124/66 (85) 95 Room Air 03/29/18 18:07 109 18 147/65 (92) 95 Room Air 03/29/18 18:04 108 18 03/29/18 17:28 99.0 121 20 105/67 (80) 96 Physical Exam GENERAL: This is a well-nourished, well-developed patient, in no apparent distress. SKIN: No rashes, ecchymoses or lesions. Cool and dry. HEAD: Atraumatic. Normocephalic. No temporal or scalp tenderness. EYES: Pupils equal round and reactive. Extraocular motions intact. No scleral icterus. No injection or drainage. ENT: Nose without bleeding, purulent drainage or septal hematoma. Throat without erythema, tonsillar hypertrophy or exudate. Uvula midline. Airway patent. NECK: Trachea midline. No JVD or lymphadenopathy. Supple, nontender, no meningeal signs. CARDIOVASCULAR: Regular rate and rhythm without murmurs, gallops, or rubs. RESPIRATORY: Clear to auscultation. Breath sounds equal bilaterally. No wheezes , rales, or rhonchi. GASTROINTESTINAL: Abdomen soft, non-tender, nondistended. No hepato-splenomegaly , or palpable masses. No guarding. MUSCULOSKELETAL: Extremities without clubbing, cyanosis, or edema. No joint tenderness, effusion, or edema noted. No calf tenderness. Negative Homans sign bilaterally. NEUROLOGICAL: Awake and alert. Cranial nerves II through XII intact. Motor and sensory grossly within normal limits. Five out of 5 muscle strength in all muscle groups. Normal speech. Laboratory Laboratory Tests Test 03/29/18 18:15 03/30/18 07:04 White Blood Count 19.3 15.6 Red Blood Count 4.09 3.74 Hemoglobin 11.9 11.0 Hematocrit 35.4 32.4 Mean Corpuscular Volume 86.6 86.8 Mean Corpuscular Hemoglobin 29.0 29.4 Mean Corpuscular Hemoglobin Concent 33.5 33.8 Red Cell Distribution Width 14.7 14.5 Platelet Count 500 458 Mean Platelet Volume 6.8 6.7 Neutrophils (%) (Auto) 80.4 84.9 Lymphocytes (%) (Auto) 7.4 7.8 Monocytes (%) (Auto) 11.9 6.3 Eosinophils (%) (Auto) 0.0 0.9 Basophils (%) (Auto) 0.3 0.1 Neutrophils # (Auto) 15.5 13.3 Lymphocytes # (Auto) 1.4 1.2 Monocytes # (Auto) 2.3 1.0 Eosinophils # (Auto) 0.0 0.1 Basophils # (Auto) 0.1 0.0 CBC Comment AUTO DIFF DIFF FINAL Differential Comment AUTO DIFF CONFIRMED Prothrombin Time 10.8 Prothromb Time International Ratio 1.1 Activated Partial Thromboplast Time 28.4 Blood Urea Nitrogen 11 10 Creatinine 0.70 0.62 Random Glucose 118 92 Total Protein 6.5 Albumin 2.9 Calcium Level 8.8 8.6 Alkaline Phosphatase 163 Aspartate Amino Transf (AST/SGOT) 16 Alanine Aminotransferase (ALT/SGPT) 19 Total Bilirubin 0.5 Sodium Level 134 135 Potassium Level 4.1 4.1 Chloride Level 98 98 Carbon Dioxide Level 27.8 28.8 Anion Gap 8 8 Estimat Glomerular Filtration Rate 81 93 Erythrocyte Sedimentation Rate 31 Date/Time Source Procedure Growth Status 03/29/18 19:20 Blood Peripheral Aerobic Blood Culture Pending Received 03/29/18 19:20 Blood Peripheral Anaerobic Blood Culture Pending Received Result Diagram: 03/30/18 0704 03/30/18 0704 Imaging Last Impressions Foot X-Ray 03/29/18 0000 Signed Impressions: Service Date/Time: Thursday, March 29, 2018 17:45 - CONCLUSION: Periosteal thickening along the mid shaft of the 2nd through 4th metatarsal bones could represent stress related injury or hypertrophic pulmonary osteoarthropathy. Recommend correlation with clinical exam for point tenderness. Rudy Benavides MD Aorta w/Runoff CTA 03/29/18 0000 Signed Impressions: Service Date/Time: Thursday, March 29, 2018 19:37 - CONCLUSION: 1. Status post placement of aortobiiliac stent graft with evidence of trace endoleak distally just above the bifurcation. 2. Moderate atherosclerotic disease in the iliac, femoral and popliteal arteries without hemodynamically significant stenosis. 3. On the right side is two-vessel runoff of the right ankle without definite evidence for embolic disease. 4. On the left side there is single vessel runoff of the left ankle without definite evidence for embolic disease. MD Americo Lazaro VTE Risk Assessment Caprini VTE Risk Assessment: Mod/High Risk (score >= 2) Caprini Risk Assessment Model Point Value = 1 Point Value = 2 Point Value = 3 Point Value = 5 Age 41-60 Minor surgery BMI > 25 kg/m2 Swollen legs Varicose veins or History of unexplained or recurrent spontaneous Oral contraceptives or hormone replacement Sepsis (< 1 month) Serious lung disease, including pneumonia (< 1 month) Abnormal pulmonary function Acute myocardial infarction Congestive heart failure (< 1 month) History of inflammatory bowel disease Medical patient at bed rest Age 61-74 Arthroscopic surgery Major open surgery (> 45 min) Laparoscopic surgery (> 45 min) Malignancy Confined to bed (> 72 hours) Immobilizing plaster cast Central venous access Age >= 75 History of VTE Family history of VTE Factor V Leiden Prothrombin [id number] Lupus anticoagulant Anticardiolipin antibodies Elevated serum homocysteine Heparin-induced thrombocytopenia Other congenital or acquired thrombophilia Stroke (< 1 month) Elective arthroplasty Hip, pelvis, or leg fracture Acute spinal cord injury (< 1 month) Prophylaxis Regimen Total Risk Factor Score Risk Level Prophylaxis Regimen 0-1 Low Early ambulation 2 Moderate Order ONE of the following: *Sequential Compression Device (SCD) *Heparin 5000 units SQ BID 3-4 Higher Order ONE of the following medications: *Heparin 5000 units SQ TID *Enoxaparin/Lovenox 40 mg SQ daily (WT < 150 kg, CrCl > 30 mL/min) *Enoxaparin/Lovenox 30 mg SQ daily (WT < 150 kg, CrCl > 10-29 mL/min) *Enoxaparin/Lovenox 30 mg SQ BID (WT < 150 kg, CrCl > 30 mL/min) AND/OR *Sequential Compression Device (SCD) 5 or more Highest Order ONE of the following medications: *Heparin 5000 units SQ TID (Preferred with Epidurals) *Enoxaparin/Lovenox 40 mg SQ daily (WT < 150 kg, CrCl > 30 mL/min) *Enoxaparin/Lovenox 30 mg SQ daily (WT < 150 kg, CrCl > 10-29 mL/min) *Enoxaparin/Lovenox 30 mg SQ BID (WT < 150 kg, CrCl > 30 mL/min) AND *Sequential Compression Device (SCD) Assessment and Plan Problem List: (1) Right foot pain ICD Codes: M79.671 - Pain in right foot; Z86.79 - Personal history of other diseases of the circulatory system Status: Acute Plan: CTA aorta with runoff reveals status post placement of aortobiiliac stent graft with evidence of trace endoleak distally just above the bifurcation. Moderate atherosclerotic disease in the iliac femoral and popliteal arteries without hemodynamically significant stenosis. On the right side is two-vessel runoff of the right ankle without definitive evidence of embolic disease. On the left side there is single-vessel runoff of the left ankle without definitive evidence of embolic disease. -Discussed the findings with vascular ARTHUR Pickering-reports she and her and Dr. Carlos are aware of the results including endoleak no urgent intervention needed at this time. If CARLITOS is negative vascular surgery okay with discharge and follow-up in their office - CARLITOS pending - Foot x-ray reviewed and revealed periosteal thickening along the mid shaft on the second through fourth metatarsal bones could represent stress related injury or hypertrophic osteoarthropathy - Patient was able to ambulate with physical therapy 50 feet 2 today - Her physical therapy discharge home with no PT recommendations Patient received aztreonam, metronidazole and vancomycin in the emergency department now has erythematous rash through out body last night. Better after Benadryl. DC abx Dr. Whitney and myself evaluated patient. Dr. Whitney discussed the case with Dr. Meeks. Patient also refusing further imaging. Start Naprosyn 500 mg PO BID for 3 days CBC in AM (2) COPD (chronic obstructive pulmonary disease) ICD Codes: J44.9 - COPD (chronic obstructive pulmonary disease) Status: Acute (3) HTN (hypertension) ICD Codes: I10 - HTN (hypertension) Status: Acute Assessment and Plan Patient examined. Assessment and plan formulated with Qian Clark PA-C. I agree with the above. right foot pain. recent revascularization. blood flow appears adequate and after discussing with dr Carlos he feels no definitive evidence of infection in the foot. the right dorsal/lat aspect of the right foot appears swollen and mild redness but not hot. She c/o of pain in the foot with ambulation. wbc 19k and low grade fever on admission. generalized drug rash on benadryl. probably vanco but she also had aztreonam and flagyl. was going to d/c her on trial of naprosyn tongight with close pcp f/u and then mri if no improvement to r/o infectious process in bone. bp was lower and so will observe overnight. await pcp callback. Qian Clark March 30, 2018 10:50 Rk Whitney MD March 30, 2018 16:07
--- NOTE | 2018-03-30 11:12 | PD.VS.CON ---
History of Present Illness Chief Complaint: Right foot pain (below 4th and 5th digit (toes) Consult Requested by: History of Present Illness Ms. owusu is a 82/F S/P EVAR for ruptured aneurysm POD 12, doing well w/o c/o abdominal/back pain, Pt does however endorse RIGHT foot pain with ambulation that is not relieved with Acetaminophen Pt denied claudication B LE warm with motor intact and distal pulses present Past/Family/Social History Past Medical History HTN COPD Skin cancer Known history of AAA Recent hx of a leaking infrarenal AAA (6.8 cm) Past Surgical History Tonsillectomy EVAR Social History Denied ETOH Smoking hx quit years ago Denied Illicit drug usage Live alone Family lives locally that checks on her daily Had 2 sons and 1 daughter Home Medications Reported Medications Ipratropium-Albuterol Neb (Duoneb) 0.5-2.5 Mg/3 Ml Neb, 1 NEBULE INH Q6HR NEB for Breathing Treatment, #120 NEBULE 0 Refills 03/18/18 Albuterol 8.5 GM Inh (Proair Hfa 8.5 GM Inh) 90 Mcg/Act Aer, 1 PUFF INH Q4H Y for SHORTNESS OF BREATH, #1 INHALER 0 Refills 108 mcg/actuation 03/18/18 Enalapril (Vasotec) 10 Mg Tab, 10 MG PO BID, #60 TAB 0 Refills 03/18/18 Coded Allergies: ciprofloxacin (Unverified Allergy, Intermediate, RASH, HIVES, 03/29/18) penicillin G (Unverified Allergy, Intermediate, RASH, HIVES, 03/29/18) Review of Systems Constitutional: DENIES: Fever, Chills Gastrointestinal: DENIES: Abdominal pain Musculoskeletal: COMPLAINS OF: Muscle aches (Right foot pain with ambulation ( below the 4th and 5th digit toes) ), DENIES: Back pain Physical Exam Vitals/I&O Date Time Temp Pulse Resp B/P (MAP) Pulse Ox O2 Delivery O2 Flow Rate FiO2 03/30/18 07:56 99.2 93 18 100/56 (71) 97 03/30/18 05:15 98.0 78 22 115/68 (84) 96 03/30/18 00:00 98.2 96 18 120/62 (81) 95 03/29/18 23:20 66 16 98/55 (69) 94 Room Air 4/30/18 23:18 03/29/18 19:00 100.0 87 16 124/66 (85) 95 Room Air 03/29/18 18:07 109 18 147/65 (92) 95 Room Air 03/29/18 18:04 108 18 03/29/18 17:28 99.0 121 20 105/67 (80) 96 03/30/18 03/30/18 03/30/18 07:00 15:00 23:00 Intake Total 700 ml Output Total 300 ml Balance 400 ml Neuro: GCS 15 A&OX3 HEENT: MOLLY Neck: No JVD distention Heart: RRR Lungs: CTA Abdomen: S/NT Vascular: Palpable R/L DP Extremities: LE warm w/ motor intact Laboratory Tests Test 03/29/18 18:15 03/30/18 07:04 White Blood Count 19.3 15.6 Red Blood Count 4.09 3.74 Hemoglobin 11.9 11.0 Hematocrit 35.4 32.4 Mean Corpuscular Volume 86.6 86.8 Mean Corpuscular Hemoglobin 29.0 29.4 Mean Corpuscular Hemoglobin Concent 33.5 33.8 Red Cell Distribution Width 14.7 14.5 Platelet Count 500 458 Mean Platelet Volume 6.8 6.7 Neutrophils (%) (Auto) 80.4 84.9 Lymphocytes (%) (Auto) 7.4 7.8 Monocytes (%) (Auto) 11.9 6.3 Eosinophils (%) (Auto) 0.0 0.9 Basophils (%) (Auto) 0.3 0.1 Neutrophils # (Auto) 15.5 13.3 Lymphocytes # (Auto) 1.4 1.2 Monocytes # (Auto) 2.3 1.0 Eosinophils # (Auto) 0.0 0.1 Basophils # (Auto) 0.1 0.0 CBC Comment AUTO DIFF DIFF FINAL Differential Comment AUTO DIFF CONFIRMED Prothrombin Time 10.8 Prothromb Time International Ratio 1.1 Activated Partial Thromboplast Time 28.4 Blood Urea Nitrogen 11 10 Creatinine 0.70 0.62 Random Glucose 118 92 Total Protein 6.5 Albumin 2.9 Calcium Level 8.8 8.6 Alkaline Phosphatase 163 Aspartate Amino Transf (AST/SGOT) 16 Alanine Aminotransferase (ALT/SGPT) 19 Total Bilirubin 0.5 Sodium Level 134 135 Potassium Level 4.1 4.1 Chloride Level 98 98 Carbon Dioxide Level 27.8 28.8 Anion Gap 8 8 Estimat Glomerular Filtration Rate 81 93 Erythrocyte Sedimentation Rate 31 Date/Time Source Procedure Growth Status 03/29/18 19:20 Blood Peripheral Aerobic Blood Culture Pending Received 03/29/18 19:20 Blood Peripheral Anaerobic Blood Culture Pending Received Last 48 hours Impressions Foot X-Ray 03/29/18 0000 Signed Impressions: Service Date/Time: Thursday, March 29, 2018 17:45 - CONCLUSION: Periosteal thickening along the mid shaft of the 2nd through 4th metatarsal bones could represent stress related injury or hypertrophic pulmonary osteoarthropathy. Recommend correlation with clinical exam for point tenderness. Rudy Benavides MD Aorta w/Runoff CTA 03/29/18 0000 Signed Impressions: Service Date/Time: Thursday, March 29, 2018 19:37 - CONCLUSION: 1. Status post placement of aortobiiliac stent graft with evidence of trace endoleak distally just above the bifurcation. 2. Moderate atherosclerotic disease in the iliac, femoral and popliteal arteries without hemodynamically significant stenosis. 3. On the right side is two-vessel runoff of the right ankle without definite evidence for embolic disease. 4. On the left side there is single vessel runoff of the left ankle without definite evidence for embolic disease. Alvaro Garcia MD Assessment and Plan Assessment: (1) Status post AAA (abdominal aortic aneurysm) repair Status: Acute (2) Right foot pain Status: Acute Plan 82/F S/P EVAR for ruptured aneurysm POD 12 doing well w/o abdominal/back pain Pt with sufficient LE perfusion as pt is with palpable distal pulses CTA reviewed- Pt w/o embolic disease Plan Ordered CARLITOS exam Will review results D/C planning with out pt f/U 03/30/18- 2 Reviewed CARLITOS results - R- 0.77/ L- 1.03 Pt clear for D/C from a Vascular Standpoint Will arrange out pt f/u with a surveillance CARLITOS Ladan Hernandez NP [facility]/[employer] [phone] Ladan Hernandez [facility] March 30, 2018 11:12
[2018-03-30 11:53] VITALS: BP 101/58; PULSE 86; RESP 18; TEMP 98.8; O2SAT 92
[2018-03-30] MEDS ORDERED: NAPR500 PO (15:50)
[2018-03-30 16:00] VITALS: BP 93/51; PULSE 106; RESP 18; TEMP 97.9; O2SAT 95
[2018-03-30] MEDS ORDERED: NAPROXEN 500 MG TAB PO ONE (16:00)
[2018-03-30] MEDS ORDERED: ENAL2.5T PO (16:04)
--- NOTE | 2018-03-30 16:07 | RADRPT ---
EXAM DATE/TIME: 03/30/2018 00:00 [place] COMPARISON: No previous studies available for comparison. INDICATIONS : Claudication TECHNIQUE: Four-cuff ankle and brachial pressures were obtained. Pulse cuff waveform tracings of the ankles were recorded, and ankle-brachial indices were calculated. PRESSURES (mmHg): Brachial (arm): Right 88 Left IV SITE Ankle: Right 68 Left 91 CARLITOS: Right 0.77 Left 1.03 TBI: Right 0.61 Left 0.56 PULSED CUFF WAVEFORMS: Decreased amplitude in the left toe. CONCLUSION: 1. Moderately decreased bilateral ankle-brachial indices, left greater right, consistent with moderat e peripheral arterial disease. Jose R Robledo MD on March 30, 2018 at 16:04 Board Certified Radiologist. This report was verified electronically.
[2018-03-30 20:50] VITALS: BP 104/70; PULSE 88; RESP 18; TEMP 97.6; O2SAT 96
[2018-03-30] MEDS: NAPROXEN 500 MG TAB PO SCH (20:58)
[2018-03-30] MEDS ORDERED: VANCOMYCIN INJ 750 MG in SODIUM CHLOR 0.9% 250 ML INJ 250 ML IV SCH (23:00)
[2018-03-31 00:20] VITALS: BP 105/67; PULSE 80; RESP 19; TEMP 98.7; O2SAT 97
[2018-03-31] MEDS: diphenhydrAMINE HCL 25 MG CAP PO PRN (01:56)
[2018-03-31 03:43] LABS: AUTOMATED NEUTROPHIL # 8.6 TH/MM3 (1.8-7.7); BASOPHIL # 0.1 TH/MM3 (0-0.2); BASOPHIL % 0.5 % (0.0-2.0); EOSINOPHIL # 0.4 TH/MM3 (0-0.4); EOSINOPHIL % 3.4 % (0.0-4.0); HEMATOCRIT 31.2 % (35.0-46.0); HEMOGLOBIN 10.5 GM/DL (11.6-15.3); LYMPH % 13.2 % (9.0-44.0); LYMPHOCYTE # 1.6 TH/MM3 (1.0-4.8); MEAN CELL VOLUME 85.6 FL (80.0-100.0); MEAN CORPUSCULAR HEMOGLOBIN 28.8 PG (27.0-34.0); MEAN CORPUSCULAR HGB CONC 33.6 % (32.0-36.0); MEAN PLATELET VOLUME 6.6 FL (7.0-11.0); MONO % 11.2 % (0.0-8.0); MONOCYTE # 1.3 TH/MM3 (0-0.9); NEUT % 71.7 % (16.0-70.0); PLATELET COUNT 443 TH/MM3 (150-450); RED BLOOD COUNT 3.64 MIL/MM3 (4.00-5.30); RED CELL DISTRIBUTION WIDTH 14.3 % (11.6-17.2)
[2018-03-31 04:15] VITALS: BP 112/64; PULSE 74; RESP 17; TEMP 98; O2SAT 96
[2018-03-31 04:16] LABS: BICARBONATE 28.2 MEQ/L (21.0-32.0); CALCIUM 8.1 MG/DL (8.5-10.1); CREATININE 0.77 MG/DL (0.50-1.00)
[2018-03-31 07:34] VITALS: BP 115/63; PULSE 73; RESP 17; TEMP 98.1; O2SAT 96
[2018-03-31] MEDS: RESP: ALBUTEROL 2.5 MG/IPRATROPIUM 0.5 MG NEB (SCH) NEB (08:00)
[2018-03-31] MEDS: NAPROXEN 500 MG TAB PO SCH (09:01)
[2018-03-31] MEDS ORDERED: PNEUMOCOCCAL POLYVALENT INJ 25 MCG/0.5 ML SYR IM ONE (10:00)
--- NOTE | 2018-03-31 11:32 | HHI.PR ---
Subjective Remarks ambulating on right foot. pain essentially gone. Objective Vitals heart reg lung cta abd s/nt ext right dorsal foot swelling and redness much better Vital Signs Date Time Temp Pulse Resp B/P (MAP) Pulse Ox O2 Delivery O2 Flow Rate FiO2 03/31/18 07:34 98.1 73 17 115/63 (80) 96 03/31/18 04:15 98.0 74 17 112/64 (80) 96 03/31/18 00:20 98.7 80 19 105/67 (80) 97 03/30/18 20:50 97.6 88 18 104/70 (81) 96 03/30/18 16:00 97.9 106 18 93/51 (65) 95 03/30/18 11:53 98.8 86 18 101/58 (72) 92 Result Diagram: 03/31/18 0327 03/31/18 0327 Imaging Last Impressions Foot X-Ray 03/29/18 0000 Signed Impressions: Service Date/Time: Thursday, March 29, 2018 17:45 - CONCLUSION: Periosteal thickening along the mid shaft of the 2nd through 4th metatarsal bones could represent stress related injury or hypertrophic pulmonary osteoarthropathy. Recommend correlation with clinical exam for point tenderness. Rudy Benavides MD Aorta w/Runoff CTA 03/29/18 0000 Signed Impressions: Service Date/Time: Thursday, March 29, 2018 19:37 - CONCLUSION: 1. Status post placement of aortobiiliac stent graft with evidence of trace endoleak distally just above the bifurcation. 2. Moderate atherosclerotic disease in the iliac, femoral and popliteal arteries without hemodynamically significant stenosis. 3. On the right side is two-vessel runoff of the right ankle without definite evidence for embolic disease. 4. On the left side there is single vessel runoff of the left ankle without definite evidence for embolic disease. Alvaro Garcia MD A/P Problem List: (1) Right foot pain ICD Codes: M79.671 - Pain in right foot; Z86.79 - Personal history of other diseases of the circulatory system Status: Acute Plan: CTA aorta with runoff reveals status post placement of aortobiiliac stent graft with evidence of trace endoleak distally just above the bifurcation. Moderate atherosclerotic disease in the iliac femoral and popliteal arteries without hemodynamically significant stenosis. On the right side is two-vessel runoff of the right ankle without definitive evidence of embolic disease. On the left side there is single-vessel runoff of the left ankle without definitive evidence of embolic disease. -Discussed the findings with vascular ARTHUR Pickering-reports she and her and Dr. Carlos are aware of the results including endoleak no urgent intervention needed at this time. CARLITOS ok per vascular ding - Foot x-ray reviewed and revealed periosteal thickening along the mid shaft on the second through fourth metatarsal bones could represent stress related injury or hypertrophic osteoarthropathy pt w/out fever. abx stopped. had drug rash probably vanco. foot pain and swelling gone after naprosyn. will give x 3 days. called pcp. f/u and if fever/redness/swelling return then mri the foot. (2) COPD (chronic obstructive pulmonary disease) ICD Codes: J44.9 - COPD (chronic obstructive pulmonary disease) Status: Chronic (3) HTN (hypertension) ICD Codes: I10 - HTN (hypertension) Status: Chronic Rk Whitney MD March 31, 2018 11:32
--- NOTE | 2018-03-31 11:36 | HHI.DCPOC ---
Discharge Care Plan Diagnosis: (1) Right foot pain (2) COPD (chronic obstructive pulmonary disease) (3) Status post AAA (abdominal aortic aneurysm) repair Goals to Promote Your Health * To prevent worsening of your condition and complications * To maintain your health at the optimal level Directions to Meet Your Goals Take your medications as prescribed Follow your dietary instruction Follow activity as directed Keep your appointments as scheduled Take your immunizations and boosters as scheduled If your symptoms worsen call your PCP, if no PCP go to Urgent Care Center or Emergency Room Smoking is Dangerous to Your Health. Avoid second hand smoke Call the 24-hour hour crisis hotline for domestic abuse at Rk Whitney MD March 31, 2018 11:36
[2018-03-31 11:46] VITALS: BP 109/53; PULSE 82; RESP 18; TEMP 98.2; O2SAT 94
--- NOTE | 2018-03-31 13:19 | PD.44.CHG ---
Code 44 - Inpatient to Obs A clinical review of the case has been conducted by a member of the Utilization Review Committee. The findings indicate the patient meets criteria for observation status. The information and decision has been discussed with the attending physician Rk Whitney MD and physician advisor Alvaro Scott. Alvaro Scott MD March 31, 2018 13:19
[2018-04-01] MEDS ORDERED: PHARMACY ORDERED LAB ONE (22:45)
== END 2018-03-31 13:30 | disposition home or self-care (01) ==
LOC: NEPC 17:25 → NEDA 21:42 → INTOOBSV 21:42 → N05A 23:45
PROVIDERS: ADMIT Hospitalist; ATTEND Hospitalist
DX: M79.671 Pain in right foot (principal); L03.115 Cellulitis of right lower limb; J44.9 Chronic obstructive pulmonary disease, unspecified; I10 Essential (primary) hypertension; F41.9 Anxiety disorder, unspecified; Z87.891 Personal history of nicotine dependence; Z86.79 Personal history of other diseases of the circulatory system; Z85.828 Personal history of other malignant neoplasm of skin
CPT/HCPCS: 73630; 75635; 80048; 80053; 85025; 85610; 85652; 85730; 87040; 93922; 94640; 94664; 96374; 96375; 97162; 99285; E0100; G0378; J2270; J2405; J3370; J7050; Q9967